=== PATIENT | male | born 1950 | race Caucasian/White ===

== ENCOUNTER 2019-06-02 13:30 | Outpatient (RCR) | payer MEDICARE, SELFPAY ==
--- NOTE | 2019-03-08 09:44 | PCCPR ---
James takes hydrocodone for chronic low back pain he takes twice per day.
[2019-03-08 10:07] VITALS: BP 148/84; PULSE 75; RESP 14; O2SAT 94
[2019-03-08 10:09] VITALS: PULSE 75
== END 2019-06-02 17:55 | disposition home or self-care (01) ==
LOC: ANHCPREHAB 13:30
PROVIDERS: PCP Internal Medicine; Visit Provider Nurse Practitioner Adult Health
DX: Z95.5 Presence of coronary angioplasty implant and graft (principal)
CPT/HCPCS: 93798

== ENCOUNTER → 2020-02-28 12:21 | Outpatient (CLI) | payer MEDICARE, SELFPAY ==
--- NOTE | ~2020-02-28 | XR_ITS ---
EXAMINATION: XR knee RT 2V DATE: 02/28/2020 12:48 INDICATION: Right knee pain. TECHNIQUE: 2 views of right knee were obtained. COMPARISON: Right knee radiographs 12/10/2017 FINDINGS: Bone alignment is normal. No fracture. There is mild osteoarthritis of medial and patellofe moral compartments characterized by marginal osteophytes. No knee joint effusion. IMPRESSION: 1. Mild right knee osteoarthritis. Reviewed, dictated and finalized at location A. TANK ERECTOR
== END ==
PROVIDERS: PCP Internal Medicine; Visit Provider Pain Medicine Interventional Pain Medicine
DX: M25.561 Pain in right knee (principal); M17.11 Unilateral primary osteoarthritis, right knee
CPT/HCPCS: 73560

== ENCOUNTER → 2020-06-11 11:57 | Outpatient (CLI) | payer MEDICARE, SELFPAY ==
--- NOTE | ~2020-06-11 | XR_ITS ---
EXAMINATION: XR elbow LT 2V DATE: 06/11/2020 12:44 INDICATION: Left elbow pain. TECHNIQUE: 2 views of left elbow were obtained. COMPARISON: Left elbow radiograph 11/06/2017 FINDINGS: Bone alignment is normal. No fracture. There is mild elbow joint osteoarthritis. There are enthesophytes at medial and lateral humeral epicondyles. No elbow joint effusion. IMPRESSION: 1. Mild elbow joint osteoarthritis. Reviewed, dictated and finalized at location A. K CLIPPER
--- NOTE | ~2020-06-11 | XR_ITS ---
EXAMINATION: XR wrist RT min 3V DATE: 06/11/2020 12:44 INDICATION: Right wrist pain TECHNIQUE: Posteroanterior, ulnar deviation, oblique, and lateral views of the right wrist were obtai niurka. COMPARISON: Right hand radiographs dated 12/10/2017 FINDINGS: Alignment is normal. No fracture. Polyarticular osteoarthritis, severe at the first carpal metacarpal joint, moderate at the second and third metacarpophalangeal joints and mild at the distal radioulnar , triscaphe, remaining metacarpophalangeal and first interphalangeal joints. Atherosclerotic calcific a cyst along the ulnar artery. IMPRESSION: 1. 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 Reviewed, dictated and finalized at location B. AL CLERK IMPRESSION: 1. 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
--- NOTE | ~2020-06-11 | XR_ITS ---
EXAMINATION: XR lumbar spine 2-3V EXAM DATE: 06/11/2020 12:44 INDICATION: Elbow pain, wrist pain, lumbar radiculopathy. TECHNIQUE: Lumber spine frontal, lateral, lateral L5-S1 projections for interpretation. Comparison is made to prior examination from 12/10/2017. FINDINGS: There is no scoliosis. There is 4 mm anterolisthesis L4 on L5 with mild loss of this disc height and at L5-S1. The vertebral body and disc heights are otherwise well maintained. There is mode rate to severe mid and lower lumbar facet arthropathy. No spondylolysis. Mild aortic arterial scleros is. Sacrum, sacroiliac joints, sacral arcuate lines are intact. Difficult to appreciate any significa nt interval change compared to prior study. IMPRESSION: 1. Advanced lower lumbar facet arthropathy. 2. L4-5 grade 1 anterolisthesis 3. Mild disc disease. Reviewed, dictated and finalized at location A. STMAS TREE FARMER
--- NOTE | ~2020-06-11 | XR_ITS ---
EXAMINATION: XR elbow RT 2V DATE: 06/11/2020 12:44 INDICATION: Right elbow pain. TECHNIQUE: 2 views of right elbow were obtained. COMPARISON: Right elbow radiographs 03/09/2018 FINDINGS: Bone alignment is normal. No fracture. There is moderate elbow joint osteoarthritis. There is an enthesophyte at lateral humeral condyle. No elbow joint effusion. IMPRESSION: 1. Moderate right elbow osteoarthritis. Reviewed, dictated and finalized at location A. DESK ASSISTANT
--- NOTE | ~2020-06-11 | XR_ITS ---
EXAMINATION: XR wrist LT min 3V DATE: 06/11/2020 12:44 INDICATION: Left wrist pain TECHNIQUE: Posteroanterior, ulnar deviation, oblique, and lateral views of the left wrist were obtain ed. COMPARISON: none FINDINGS: Alignment is normal. No fracture. Polyarticular osteoarthritis, moderate severity at the triscaphe, f irst carpometacarpal and second and fourth metacarpophalangeal joints and mild at the distal radiouln ar, the remaining metacarpophalangeal joints and the visualized interphalangeal joints. Atherosclerot ic calcifications along the ulnar artery. IMPRESSION: 1. Polyarticular osteoarthritis, mild at the left wrist and mild moderate at the visualized left hand . Reviewed, dictated and finalized at location B. P INSURANCE SPECIALIST IMPRESSION: 1. Polyarticular osteoarthritis, mild at the left wrist and mild moderate at th e visualized left hand.
== END ==
PROVIDERS: Visit Provider Family Medicine
DX: M19.021 Primary osteoarthritis, right elbow (principal); M19.022 Primary osteoarthritis, left elbow; M47.817 Spondylosis without myelopathy or radiculopathy, lumbosacral region; M19.032 Primary osteoarthritis, left wrist; M19.031 Primary osteoarthritis, right wrist
CPT/HCPCS: 72100; 73070; 73110

== ENCOUNTER → 2020-08-08 13:00 | Outpatient (CLI) | payer MEDICARE, SELFPAY ==
--- NOTE | ~2020-08-08 | XR_ITS ---
EXAMINATION: XR cervical spine 4-5V EXAM DATE: 08/08/2020 13:19 INDICATION: Cervical radiculopathy, chronic posterior neck and right arm radicular pain. TECHNIQUE: Cervical spine frontal, lateral, lateral swimmers, and open-mouth odontoid projections. C omparison is made to prior examination from 05/20/2018. FINDINGS: There is carotid calcification, arterial sclerotic disease, with unknown amount of additio nal atherosclerotic disease. Consider correlating with carotid ultrasound if not recently evaluated (last prior ultrasound at this institution was 2009). Moderate disc disease at C5-6, mild at the other cervical levels. 2 mm retrolisthesis C5 on C6. The v ertebral bodies are otherwise aligned. Prevertebral soft tissue and pre-dens space are within normal limits. The odontoid process is intact. The lateral masses of C1 line up with C2. Overall moderate c ervical arthropathy. Lung apices unremarkable. IMPRESSION: 1. Moderate cervical spondylosis. 2. Carotid calcification, consider ultrasound. Reviewed, dictated and finalized at location A.
== END ==
PROVIDERS: PCP Internal Medicine; Visit Provider Pain Medicine Interventional Pain Medicine
DX: M54.12 Radiculopathy, cervical region (principal); M47.812 Spondylosis without myelopathy or radiculopathy, cervical region; I65.29 Occlusion and stenosis of unspecified carotid artery
CPT/HCPCS: 72050

== ENCOUNTER → 2021-03-11 13:16 | Outpatient (CLI) | payer MEDICARE, SELFPAY ==
--- NOTE | ~2021-03-11 | XR_ITS ---
EXAMINATION: XR lumbar spine 2-3V DATE: 03/11/2021 14:18 INDICATION: Radiculopathy, lumbar region. TECHNIQUE: 3 views of lumbar spine were obtained. COMPARISON: Lumbar spine radiographs 06/11/2020 FINDINGS: There is 3 mm anterolisthesis of L4 on L5. Vertebral body heights are normal. There is mild ly decreased disc height at L4-L5 and L5-S1. There is multilevel facet joint osteoarthritis, severe b ilaterally from L2-L3 through L5-S1. IMPRESSION: 1. Mild lumbar spondylosis. Reviewed, dictated and finalized at location A. T ARMORED RECONNAISSANCE OFFICER IMPRESSION: 1. Mild lumbar spondylosis.
== END ==
PROVIDERS: PCP Internal Medicine
DX: M47.816 Spondylosis without myelopathy or radiculopathy, lumbar region (principal)
CPT/HCPCS: 72100

== ENCOUNTER → 2021-03-27 09:59 | Outpatient (CLI) | payer MEDICARE, SELFPAY ==
--- NOTE | ~2021-03-27 | CT_ITS ---
EXAMINATION: CT abdomen pelvis wo/w con DATE: 03/27/2021 10:46 INDICATION: Microscopic hematuria TECHNIQUE: Computed tomography (CT) of the abdomen and pelvis was performed without intravenous contr ast. CT of the abdomen and pelvis was then performed with a total of 130 mL Omnipaque 350 intravenous contrast using a double-bolus technique for simultaneous opacification of the renal parenchyma and r enal collecting system. The dose-length product (DLP) was 2263.74 mGy-cm. Automated exposure control and iterative reconstruction technique were employed. COMPARISON: 02/24/2018 FINDINGS: Minimal dependent atelectasis is present in the lung bases. The heart size is normal. Calci fied pulmonary nodules and calcified bilateral hilar and mediastinal lymph nodes are consistent with old granulomatous disease. Calcified coronary artery atherosclerosis is noted. The liver, spleen, jenkins creas, gallbladder, and adrenal glands are normal. No stones are identified in the kidneys, ureters, or bladder. There is no hydronephrosis or hydroureter. No suspicious renal or urothelial lesion is id entified. There is a stricture at the left ureteropelvic junction. There is calcified atherosclerosis of the aorta and many of the other arteries. No pathologically enlarged abdominal or pelvic lymph no santos are identified. The appendix is normal. There are bilateral inguinal hernias containing fat. Ther e is mild lumbar spondylosis. IMPRESSION: 1. Left ureteropelvic junction stricture. No CT correlate for the patient's symptoms. Reviewed, dictated and finalized at location A. BLADE ALIGNER IMPRESSION: 1. Left ureteropelvic junction stricture. No CT correlate for the patient's sym ptoms.
--- NOTE | ~2021-03-27 | XR_ITS ---
EXAMINATION: XR abdomen/kub 1V INDICATION: Microscopic hematuria TECHNIQUE: Supine views of the abdomen were obtained on 2 radiographs. COMPARISON: CT from today FINDINGS: No urolithiasis is identified. The bowel gas pattern is normal. There is moderate osteoarth ritis of the hips. IMPRESSION: 1. No radiographic correlate for the patient's symptoms. Reviewed, dictated and finalized at location A. DOCTOR
[2021-03-27 10:23] LABS: Estimated Glomerular Filt Rate > 60
== END ==
PROVIDERS: PCP Internal Medicine; Visit Provider Urology
DX: R31.29 Other microscopic hematuria (principal); N13.0 Hydronephrosis with ureteropelvic junction obstruction; M16.0 Bilateral primary osteoarthritis of hip; K40.90 Unilateral inguinal hernia, without obstruction or gangrene, not specified as recurrent; I70.0 Atherosclerosis of aorta; M47.816 Spondylosis without myelopathy or radiculopathy, lumbar region
CPT/HCPCS: 74018; 74178; Q9967

== ENCOUNTER 2021-04-08 11:39 | Emergency (ER) | payer MEDICARE, SELFPAY ==
--- NOTE | ~2021-04-08 | XR_ITS ---
EXAMINATION: XR chest 2V DATE: 04/08/2021 12:53 INDICATION: Cough. TECHNIQUE: Frontal and lateral views of the chest were obtained on 3 radiographs. COMPARISON: Chest 2 views 06/24/2007 FINDINGS: Calcified bilateral lung nodules and calcified hilar lymph nodes are consistent with old gr anulomatous disease. No pleural effusion or pneumothorax. The heart size is normal. IMPRESSION: 1. No acute cardiopulmonary disease. Reviewed, dictated and finalized at location A. SCRIPT APPLICATION DEVELOPER
[2021-04-08 12:14] VITALS: BP 157/70; PULSE 57; RESP 16; TEMP 36.4; O2SAT 98
--- NOTE | 2021-04-08 12:37 | ED.URI ---
HPI - URI/Sore Throat General Chief Complaint: Upper Respiratory Infection Stated Complaint: Cough,Congestion,Sore Throat,Sinus Time Seen by Provider: 04/08/21 12:37 Source: patient, RN notes reviewed and old records reviewed Mode of arrival: ambulatory Limitations: no limitations History of Present Illness HPI Narrative: 71-year-old male presents to the [facility] with cough, congestion, sore throat and sinus pain Patient reports a deep cough that started Thursday or along with chest congestion. Sore throat sinus drainage started a day ago. States is currently in the hospital with double pneumonia. Had a Covid test on Thursday which he reports was negative. Related Data Home Medications Medication Instructions Recorded Confirmed hydrocodone-acetaminophen 1 tablet PO BID PRN 03/08/19 01/03/21 nitroglycerin [Nitrostat] 0.4 mg SUBLINGUAL Q5-15M PRN 03/08/19 01/03/21 omega-3 fatty acids-fish oil 1,000 mg BYMOUTH DAILY 03/08/19 01/03/21 aspirin 81 mg tablet,delayed 81 mg PO DAILY 01/03/21 01/03/21 release Allergies Allergy/AdvReac Type Severity Reaction Status Date / Time No Known Allergies Allergy Verified 04/08/21 12:50 Review of Systems Review of Systems: All systems reviewed & are unremarkable except as noted in HPI and below Constitutional: Constitutional: Reports no additional constitutional complaints, Denies chills and Denies fever(s) Eyes: Eyes: Reports no additional eye complaints ENT: Reports system reviewed and no additional complaints, except as documented and Denies sore throat Cardiovascular: Cardiovascular: Reports no additional cardiovascular complaints, Denies chest pain, Denies rapid heart rate, Denies radiating jaw, neck or arm pain and Denies slow heart rate Respiratory: Respiratory: Reports as per HPI, Reports chest congestion, Reports cough, Denies dyspnea and Denies wheezing Gastrointestinal: Gastrointestinal: Reports no additional gastrointestinal complaints, Denies abdominal pain, Denies nausea and Denies vomiting Musculoskeletal: Musculoskeletal: Reports no additional musculoskeletal complaints Integumentary/Breasts: Skin/Breast: Reports system reviewed and no additional complaints, except as docu Neurologic: Reports system reviewed and no additional complaints, except as documented Psychiatric: Psychiatric: Reports no additional psychiatric complaints Allergic/Immunologic: Allergic/Immunologic: Reports no additional allergic/immunologic complaints PMFSH Past Medical History Medical History Chronic GERD DM w/o complication type II Essential (primary) hypertension Surgical History Surgical History H/O colonoscopy H/O heart artery stent H/O heart artery stent S/P cervical disc replacement Family History Family History Father Family history of heart disease in male family member before age 55 Acute myocardial infarction Mother No problems noted. Other Acute myocardial infarction Social History Social History Smoking status: Light tobacco smoker Tobacco type: cigarettes Second hand tobacco smoke exposure: Yes Alcohol intake: current Substance use: never Gender identity (if verbalized by the patient): Male Comments At the time of my signature, I reviewed and agree with the nursing past medical, surgical, social, and family history. There is no relevant family history pertinent to the patient complaint. Exam Const: General: healthy appearing, no acute distress and alert Nutritional Appearance: well nourished Orientation/consciousness: patient oriented x3 Limitations: no limitations HENMT: Head: normal to inspection Ears: external ears normal, TM's normal bilaterally and EAC's normal Eyes: Conjunctivae: conjunctivae normal Pupils: Equal, round
[2021-04-08 13:03] LABS: Glucose Point of Care 129 mg/dl (65-105)
== END 2021-04-08 13:15 | disposition home or self-care (01) ==
PROVIDERS: Emergency Provider Nurse Practitioner; PCP Internal Medicine
DX: J40 Bronchitis, not specified as acute or chronic (principal); F17.210 Nicotine dependence, cigarettes, uncomplicated; K21.9 Gastro-esophageal reflux disease without esophagitis; E11.9 Type 2 diabetes mellitus without complications; I10 Essential (primary) hypertension; Z95.5 Presence of coronary angioplasty implant and graft
CPT/HCPCS: 71046; 82948; 87804; 99213; G0463

== ENCOUNTER → 2021-05-09 15:52 | Outpatient (CLI) | payer MEDICARE, SELFPAY ==
--- NOTE | ~2021-05-09 | XR_ITS ---
EXAMINATION: XR knee LT min 4V DATE: 05/09/2021 16:27 INDICATION: Left knee pain. TECHNIQUE: 4 views of left knee including standing views were obtained. COMPARISON: None. FINDINGS: Bone alignment is normal. No fracture. There is mild tricompartmental osteoarthritis charac terized by marginal osteophytes. No joint space narrowing. No knee joint effusion. IMPRESSION: 1. Mild left knee osteoarthritis. Reviewed, dictated and finalized at location A. TRONIC ASSEMBLER
--- NOTE | ~2021-05-09 | XR_ITS ---
XR knee RT min 4V 05/09/2021 16:27 Indication: Right knee pain Procedure: 4 views right knee Comparison: 02/28/2020 Findings: There is mild tricompartment osteoarthritis of the right knee. No fracture, subluxation or dislocation. No significant joint effusion. There is extensive vascular calcification. No foreign bod ies. Impression: 1: Mild tricompartment osteoarthritis of the right knee. Reviewed, dictated and finalized at location B. CAL PRACTICE MANAGER Impression: 1: Mild tricompartment osteoarthritis of the right knee.
== END ==
PROVIDERS: Visit Provider Family Medicine
DX: M25.561 Pain in right knee (principal); M25.562 Pain in left knee; M17.0 Bilateral primary osteoarthritis of knee
CPT/HCPCS: 73564

== ENCOUNTER 2021-06-17 13:04 | Outpatient (CLI) | payer MEDICARE, SELFPAY ==
--- NOTE | ~2021-06-17 | NM_ITS ---
EXAMINATION: HEATHER hernandez renal scan DATE: 06/17/2021 14:53 INDICATION: Ureteropelvic junction obstruction. TECHNIQUE: 8.0 mCi Tc-99m MAG3 was administered IV. 40 mg furosemide was administered IV immediately afterward. The patient was scanned in the supine position. A posterior abdominal radionuclide angiog hunter was obtained. A subsequent time course of static images of the kidneys, ureters, and bladder was obtained. COMPARISON: CT abdomen and pelvis 03/27/2021 FINDINGS: The posterior abdominal radionuclide angiogram and sequential static images show normal siz e, position, and morphology of the kidneys. Peak renal parenchymal uptake was 2 min in right kidney a nd 2 min in left kidney (normal peak 3-5 minutes). The relative early renal uptake was 52% on the ri ght and 47% on the left (<40% is abnormal). No abnormalities of the ureters or bladder are seen. T1/2 for clearance of activity from the right kidney and proximal collecting system was 10 minutes. T1/2 for clearance of activity from the left kidney and proximal collecting system was 10 minutes. IMPRESSION: 1. Symmetric kidney function. 2. No delay in contrast clearance from either kidney to suggest fixed obstruction. Reviewed, dictated and finalized at location A. MBLYMAN OR WOMAN IMPRESSION: 1. Symmetric kidney function. 2. No delay in contrast clearance from either kidney to suggest fixed obstruct ion.
== END 2021-06-17 13:05 | disposition home or self-care (01) ==
PROVIDERS: Visit Provider Urology
DX: N13.5 Crossing vessel and stricture of ureter without hydronephrosis (principal)
CPT/HCPCS: 78708; A9562; J1940

== ENCOUNTER → 2021-06-19 14:06 | Outpatient (CLI) | payer MEDICARE, SELFPAY ==
--- NOTE | ~2021-06-19 | XR_ITS ---
EXAMINATION:XR_CERV2-3V_CR DATE: 06/19/2021 14:39 INDICATION: Cervical radiculopathy TECHNIQUE: AP, lateral, and odontoid views of the cervical spine are provided. COMPARISON: 08/08/2020 FINDINGS: There are 2 mm of stable retrolisthesis of C5 on C6. There is unchanged moderate loss of in tervertebral disc space height at C5-6. The odontoid is intact. No fracture is identified. The verteb ral body heights are normal. Small degenerative osteophytes project from the anterior endplates of mu ltiple vertebral bodies. There is moderate multilevel facet and uncovertebral joint osteoarthritis. IMPRESSION: 1. Moderate cervical spondylosis without acute findings or significant interval change. Reviewed, dictated and finalized at location B. KFAST BAR ATTENDANT
== END ==
PROVIDERS: PCP Pain Medicine Interventional Pain Medicine
DX: M54.12 Radiculopathy, cervical region (principal); M43.02 Spondylolysis, cervical region
CPT/HCPCS: 72040

== ENCOUNTER → 2021-10-18 14:31 | Outpatient (CLI) | payer MEDICARE, SELFPAY ==
--- NOTE | ~2021-10-18 | XR_ITS ---
XR knee LT 2V 10/18/2021 14:43 Indication: Left knee pain Procedure: 2 views left knee Comparison: No prior studies for comparison. Findings: There is anatomic alignment. No fracture, subluxation or dislocation. There is mild patello femoral compartment osteoarthritis. There are vascular calcifications. No significant joint effusion. Impression: 1: Mild patellofemoral compartment osteoarthritis. Reviewed, dictated and finalized at location A. Impression: 1: Mild patellofemoral compartment osteoarthritis.
--- NOTE | ~2021-10-18 | XR_ITS ---
XR knee RT 2V DATE: 10/18/2021 14:43 INDICATION: Right knee pain TECHNIQUE: AP and lateral views COMPARISON: 04/19/2021 right knee FINDINGS: No fracture or dislocation or joint effusion. No periosteal reaction or bone destruction. N o radiopaque intra-articular loose body or chondrocalcinosis. Medial lateral compartment joint spaces appear well preserved. Mild osteoarthritis at the patellofemoral compartment. Femoral, popliteal and trifurcation artery calcifications. IMPRESSION: Mild patellofemoral osteoarthritis Reviewed, dictated and finalized at location A.
== END ==
PROVIDERS: PCP Internal Medicine; Visit Provider Pain Medicine Interventional Pain Medicine
DX: M25.569 Pain in unspecified knee (principal); M17.0 Bilateral primary osteoarthritis of knee
CPT/HCPCS: 73560

== ENCOUNTER → 2022-03-19 14:15 | Outpatient (CLI) | payer MEDICARE, SELFPAY ==
--- NOTE | ~2022-03-19 | XR_ITS ---
XR hip BI wo pelvis DATE: 03/19/2022 14:45 INDICATION: Posterior left hip pain for 4 weeks. No injury. TECHNIQUE: AP and lateral views of each hip COMPARISON: None FINDINGS: Normal alignment at the pubic symphysis and sacral iliac joints. No fracture or dislocation , avascular necrosis or bone destruction of either hip is detected. Hip joint spaces are symmetric an d relatively well preserved. IMPRESSION: No significant abnormality Reviewed, dictated and finalized at location B. STRIPPER IMPRESSION: No significant abnormality
== END ==
PROVIDERS: Visit Provider Pain Medicine Interventional Pain Medicine
DX: M47.817 Spondylosis without myelopathy or radiculopathy, lumbosacral region (principal); M25.552 Pain in left hip
CPT/HCPCS: 73502; 73521

== ENCOUNTER → 2022-05-27 14:54 | Outpatient (CLI) | payer MEDICARE, SELFPAY ==
--- NOTE | ~2022-05-27 | XR_ITS ---
EXAM: XR_CERV2-3V_CR DATE: 05/27/2022 15:23 HISTORY: Radiculopathy, cervical region . COMPARISON: 06/19/2021. FINDINGS: Craniocervical association and atlantoaxial joint are aligned. No prevertebral soft tissue swelling. Vertebral bodies are aligned. Stable minimal retrolisthesis at C5-6. Multilevel disc space narrowing and marginal osteophytosis. Multilevel facet sclerosis and uncovertebral joint hypertrophy . Bilateral carotid bifurcation atherosclerotic calcifications. IMPRESSION: Multilevel degenerative disc disease and facet arthropathy. Reviewed, dictated and finalized at location K. RPROOFER HELPER
--- NOTE | ~2022-05-27 | XR_ITS ---
EXAM: XR lumbar spine 2-3V DATE: 05/27/2022 15:23 HISTORY: Radiculopathy, lumbosacral region . COMPARISON: 03/11/2021. FINDINGS: 5 nonrib-bearing lumbar-type vertebral bodies. Pedicles intact. 4 mm anterolisthesis at L4 -5, increased since the prior study. Vertebral body heights preserved. Multilevel disc space narrowin g and marginal osteophytosis, moderate at L4-5 and L5-S1. Severe facet hypertrophy and sclerosis. No fracture or dislocation. Aortic calcification without evident aneurysm IMPRESSION: Grade 1 anterolisthesis at L4-5. Multilevel degenerative disc disease. Multilevel severe facet arthropathy. Reviewed, dictated and finalized at location K. OLOGIC TECHNOLOGY TEACHER IMPRESSION: Grade 1 anterolisthesis at L4-5. Multilevel degenerative disc disea se. Multilevel severe facet arthropathy.
== END ==
PROVIDERS: PCP Internal Medicine; Visit Provider Pain Medicine Interventional Pain Medicine
DX: M54.17 Radiculopathy, lumbosacral region (principal); M54.12 Radiculopathy, cervical region; G89.4 Chronic pain syndrome; M50.30 Other cervical disc degeneration, unspecified cervical region; M51.36 Other intervertebral disc degeneration, lumbar region
CPT/HCPCS: 72040; 72100

== ENCOUNTER 2023-07-14 13:16 | Outpatient (CLI) | payer MEDICARE, SELFPAY ==
--- NOTE | ~2023-07-14 | XR_ITS ---
XR lumbar spine 2-3V DATE: 07/14/2023 13:41 INDICATION: Back pain TECHNIQUE: AP, lateral, coned lateral lumbosacral views COMPARISON: May 27, 2021 lumbar spine radiographic examination is not available from the PACS sy stem at this time FINDINGS: Osteopenia. There is a grade 1 anterolisthesis at L4-5. Prominent degenerative change is suggested at the apophyseal joints at the mid and lower lumbar and l umbosacral area. There is mild to moderate loss of interspace height at L4-5 and L5-S1. There is mild degenerative spu rring at L3-4, L4-5 and L5-S1. No fracture or bone destruction is evident. The included lower thoracic and lumbar pedicles are intac t. The sacroiliac joints are intact. IMPRESSION: Moderate degenerative disease at L4-5 and L5-S1, mild degenerative disc disease at L2-3 a nd L3-4 Grade 1 anterolisthesis at L4-5 due to degenerative change at the apophyseal joints Osteopenia Reviewed, dictated and finalized at location B. IMPRESSION: Moderate degenerative disease at L4-5 and L5-S1, mild degenerative disc disease at L2-3 and L3-4 Grade 1 anterolisthesis at L4-5 due to degenerative change at the apophyseal jacqueline ints Osteopenia
--- NOTE | ~2023-07-14 | XR_ITS ---
XR cervical spine 4-5V DATE: 07/14/2023 13:41 INDICATION: Neck pain TECHNIQUE: AP, open-mouth, lateral, swimmer views COMPARISON: May 27, 2022 cervical spine examination is not available from PACS at this time FINDINGS: C1 and C2 are normally aligned and the odontoid process is intact. No fracture or dislocati on or locked facet or prevertebral soft tissue swelling. Moderately severe degenerative disc disease and mild retrolisthesis at C5-6. The remaining cervical i nterspaces are relatively well preserved. There is minimal anterolisthesis at C6-7. Degenerative changes apophyseal joints. Bilateral uncovertebral joint spurring is noted particularly at C5-6 bilaterally. IMPRESSION: Moderate cervical spondylosis Reviewed, dictated and finalized at location B.
== END 2023-07-14 13:17 ==
LOC: MICIMG 13:20
PROVIDERS: PCP Pain Medicine Interventional Pain Medicine; Visit Provider Pain Medicine Interventional Pain Medicine
DX: M51.36 Other intervertebral disc degeneration, lumbar region (principal); M51.37 Other intervertebral disc degeneration, lumbosacral region; M43.16 Spondylolisthesis, lumbar region; M85.89 Other specified disorders of bone density and structure, multiple sites
CPT/HCPCS: 72050; 72100

== ENCOUNTER 2023-09-21 09:49 | Outpatient (CLI) | payer MEDICARE, SELFPAY ==
--- NOTE | ~2023-09-21 | XR_ITS ---
XR wrist RT min 3V Ordering provider: Alissa Saleh MD History: . NUMBNESS, PAIN, TINGLING X 1.5 MONTHS NKI NO SURG . Comparison: June 11, 2020 FINDINGS: BONES: No acute fracture or dislocation. JOINT SPACES: Osteoarthritic changes of the first carpometacarpal joint. SOFT TISSUES: Vascular calcifications. IMPRESSION: No acute osseous abnormality right wrist.. Reviewed, dictated and finalized at location A.
== END 2023-09-21 09:50 | disposition home or self-care (01) ==
PROVIDERS: PCP Nurse Practitioner Family; Visit Provider Plastic Surgery
DX: G56.20 Lesion of ulnar nerve, unspecified upper limb (principal)
CPT/HCPCS: 73110

== ENCOUNTER 2023-10-14 09:43 | Outpatient (CLI) | payer MEDICARE, SELFPAY ==
--- NOTE | 2023-10-14 11:30 | NEURO_ITS ---
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 # Mild right sensory Carpal Tunnel Syndrome. # Bilateral severe ulnar neuropathy, right more than left, across the elbows. # Abnormal needle/EMG exam. Nerve Conduction Studies Anti Sensory Summary Table Stim Site NR Peak (ms) P-T Amp (?V) Site1 Site2 Delta-P (ms) Dist (cm) Chuck (m/s) Left Median Anti Sensory (2-3nd Digit) Wrist 3.5 39.1 Wrist 2-3nd Digit 3.5 14.0 40 Wrist 3.7 30.0 Wrist 2-3nd Digit 3.5 14.0 40 Right Median Anti Sensory (2-3nd Digit) Wrist 4.1 14.5 Wrist 2-3nd Digit 4.1 14.0 34 Wrist 4.2 6.4 Wrist 2-3nd Digit 4.1 14.0 34 Left Radial Anti Sensory (Base 1st Digit) Wrist 1.9 29.4 Wrist Base 1st Digit 1.9 0.0 Right Radial Anti Sensory (Base 1st Digit) Wrist 2.8 15.5 Wrist Base 1st Digit 2.8 0.0 Left Ulnar Anti Sensory (5th Digit) Wrist 2.9 29.1 Wrist 5th Digit 2.9 14.0 48 Right Ulnar Anti Sensory (5th Digit) Wrist 3.3 14.7 Wrist 5th Digit 3.3 14.0 42 Motor Summary Table Stim Site NR Onset (ms) O-P Amp (mV) Site1 Site2 Delta-0 (ms) Dist (cm) Chuck (m/s) Left Median Motor (Abd Poll Brev) Wrist 3.2 5.9 Elbow Wrist 5.7 29.0 51 Elbow 8.9 4.0 Right Median Motor (Abd Poll Brev) Wrist 3.7 5.0 Elbow Wrist 5.9 32.0 54 Elbow 9.6 3.9 Left Ulnar Motor (Abd Dig Minimi) Wrist 2.8 2.6 A Elbow Wrist 9.5 32.0 34 A Elbow 12.3 1.1 B Elbow Wrist 4.5 24.0 53 B Elbow 7.3 1.7 Right Ulnar Motor (Abd Dig Minimi) Wrist 2.5 3.6 A Elbow Wrist 17.1 32.0 19 A Elbow 19.6 0.9 B Elbow Wrist 4.3 20.0 47 B Elbow 6.8 3.2 F Wave Studies NR F-Lat (ms) L-R F-Lat (ms) Left Median (Mrkrs) (Abd Poll Brev) 29.38 0.02 Right Median (Mrkrs) (Abd Poll Brev) 29.36 0.02 Left Ulnar (Mrkrs) (Abd Dig Min) 28.27 0.48 Right Ulnar (Mrkrs) (Abd Dig Min) 28.74 0.48 EMG Side Muscle Nerve Root Ins Act Fibs Amp Dur Recrt Comment Right Ext Indicis Radial (Post Int) C7-8 Nml Nml Nml Nml Nml Left Ext Indicis Radial (Post Int) C7-8 Nml Nml Nml Nml Nml Left Ext Digitorum Radial (Post Int) C7-8 Nml Nml Nml Nml Nml Right PronatorTeres Median C6-7 Nml Nml Nml Nml Nml Right Ext Digitorum Radial (Post Int) C7-8 Nml Nml Nml Nml Nml Right Abd Poll Brev Median C8-T1 Nml Nml Nml Nml Nml Right BrachioRad Radial C5-6 Nml Nml Nml Nml Nml Left BrachioRad Radial C5-6 Nml Nml Nml Nml Nml Left PronatorTeres Median C6-7 Nml Nml Nml Nml Nml Left Abd Poll Brev Median C8-T1 Nml Nml Nml Nml Nml Right 1stDorInt Ulnar C8-T1 Nml 3+ Nml >12ms +4 Left 1stDorInt Ulnar C8-T1 Nml 3+ Nml >12ms +4 Right ABD Dig Min Ulnar C8-T1 Nml 3+ Nml >12ms +4 Left ABD Dig Min Ulnar C8-T1 Nml 3+ Nml >12ms +4 MTDD
== END 2023-10-14 09:44 | disposition home or self-care (01) ==
PROVIDERS: PCP Nurse Practitioner Family; Visit Provider Plastic Surgery
DX: G56.20 Lesion of ulnar nerve, unspecified upper limb (principal); G56.01 Carpal tunnel syndrome, right upper limb; G56.23 Lesion of ulnar nerve, bilateral upper limbs; R94.131 Abnormal electromyogram [EMG]
CPT/HCPCS: 95886; 95911

== ENCOUNTER 2023-12-02 13:40 | Outpatient (CLI) | payer MEDICARE, SELFPAY ==
--- NOTE | ~2023-12-02 | XR_ITS ---
EXAMINATION: XR thoracic spine 3V DATE: 12/02/2023 13:56 INDICATION: Radiculopathy, thoracic region. Upper back pain. TECHNIQUE: 3 views of thoracic spine including standing views were obtained. COMPARISON: None. FINDINGS: There is 9 degrees levocurvature of upper thoracic spine. Vertebral body heights are normal . There is mildly decreased disc at multiple levels throughout the spine. There are endplate osteophy edith at most levels. IMPRESSION: 1. Mild thoracic spondylosis. Reviewed, dictated and finalized at location A.
== END 2023-12-02 13:41 ==
PROVIDERS: PCP Pain Medicine Interventional Pain Medicine; Visit Provider Pain Medicine Interventional Pain Medicine
DX: M54.14 Radiculopathy, thoracic region (principal); M43.04 Spondylolysis, thoracic region
CPT/HCPCS: 72072

== ENCOUNTER 2023-12-23 01:43 | Day surgery (SDC) | payer MEDICARE, SELFPAY ==
[2023-12-17 14:14] VITALS: BMI 29.5
--- NOTE | 2023-12-17 14:40 | PC.NURSE ---
Addendum entered by Sherry Funk RN 12/18/23 11:58: Pt aware no more than 20 oz of liquids until 414. Original Note: Report to the Outpatient Waiting Room, entrance under the [facility] located off [facility], at time _10:15AM__ on date _12/23/23_. Planned Procedure Time: ____12:15PM____.? Time changes happen often and if your time is changed the preop area will call you the afternoon before. - You and your visitor will be asked to self-screen and do not enter if you have any COVID symptoms. Please call surgeon if you need to reschedule. - A mask is optional within the hospital at this time. Patients may have clear liquids (water, carbonated beverages, clear teas, apple juice) until 3 hours prior to surgery with a maximum of 20 ounces. - No food from midnight until time of surgery and no smoking. Take only the following medications with a SIP of water on the morning of surgery: METOPROLOL. MAY TAKE HYDROCODONE AND LORAZEPAM NEEDED. DO NOT STOP ANY OF YOUR OTHER PRESCRIPTION MEDICATIONS PRIOR TO SURGERY EXCEPT THE FOLLOWING Medications to discontinue per physician HOLD PLAVIX & ASPIRIN PER DR DICKEY- PATIENT CALLING OFFICE NOW. HOLD ALL VITAMINS/SUPPLEMENTS 3 DAYS PRE-OP PER ANESTHESIA- LAST DOSE 12/19/23. Please no make-up, nail korean, hairspray, perfume, deodorant, or body powder the day of surgery.? No jewelry (including any body piercings) or valuables the day of surgery, leave them at home.? Please take a shower or bath the night before, or the morning of, surgery with an antibacterial soap.? Wear comfortable, loose fitting clothing.? Children are encouraged to wear pajamas. - Jewelry must be removed prior to entering the operating room.? Rings and piercings that are not removed may be cut off. - The hospital will not accept responsibility for valuables.? - Please leave all valuables, including medications, at home the day of surgery. If you are going home after surgery, a licensed dump truck driver off highway must drive you home.? - NO public transportation without another adult if you receive anesthesia. - We recommend that an adult stay with you for 24 hours following discharge. - We also recommend that you do not drive, make important decision, drink alcoholic beverages, or take any drugs that were not prescribed by your health care provider for at least 24 hours after your discharge time. For Pediatric surgeries, we recommend two adults accompany the child home. Follow any additional instructions given to you from your surgeon. Telephone instructions given to PATIENT and asked if any additional questions and then verbalized understanding. Patient advised to call surgeon office or pre surgery nurse liaison [phone] if any additional questions.
--- NOTE | 2023-12-23 07:16 | P.OP_ITS ---
Procedure Note - Detailed Date of Procedure 12/23/23 Pre-op Diagnosis right carpal and recurrent cubital tunnel syndrome Post-op Diagnosis Same Procedure Performed right ectr and revisiion right CuTR Surgeon Alissa Saleh MD Dental Front Office Assistant Ed Agudelo PA-C Anesthesia MAC Description of Procedure INFORMED CONSENT: The patient was seen and examined and marked in the pre-op area.? The patient signed the consent form. PROCEDURE IN DETAIL:The patient taken back to OR on the stretcher in supine position. Time out performed with anesthesia, surgeon and staff agreeing on patient's name site and surgery to be performed SCDs were placed on the lower extremities and inflated. A tourniquet was placed on {right} upper extremity and antibiotics given IV After anesthesia administered sedation I injected {10}cc 1%lido with epi and 0.5% marcaine plain at the operative sites The?{right upper extremity}?was prepped and draped in sterile fashion the??{right upper extremity} was? exsanguinated with Esmarch bandage and tourniquet inflated to 250mmHg I made a transverse incision in the {right} volar distal wrist crease through skin and dermis with 15 blade scalpel.? Littler scissors spread down to antebrachial fascia. A small incision was made in antebrachial fascia allowing access to Carpal tunnel. I proceeded with sequential dilation staying in line with the ring finger and hugging the hook of the hamate.? I then used the synovial elevator to free any adhesions from the underside of the transverse carpal ligament. Next I was able to insert the Microaire endoscopic carpal tunnel device with direct visualization of the transverse fibers on the monitor and proceeded with complete segmental retrograde release of the ligament in its entirety.? I irrigated with normal saline and closed with 4-0 monocryl for dermis and subcuticular closure. I next proceeded with making a longitudinal incision between two heads for flexor carpi ulnaris at end of {right} cubital tunnel with 15 blade scalpel utilizing patient's previous healed incision.? Littler scissors were used to spread down to FCU fascia.? An incision was made in FCU fascia and ulnar nerve identified exiting cubital tunnel.? I proceeded with complete retrograde release of the cubital tunnel including 7cm proximal for the intermuscular septum.?It should be noted that this was a revision case and the anatomy was notably distorted rom scar tissue and previous surgery adding to difficulty of identification and nerve dissection. Significant epineurolysis of scar was performed until I was able to begin visualzing vaso nervorum and ensuring the nerve was free of compression. There was no subluxation on full elbow range of motion. ? I irrigated with normal saline and closure with 4-0 monocryl for dermis and subcuticular. The incision was covered with Dermabond then 4x4s, jh, and a posterior elbow splint for patient safety, security and comfort and secured with taty bandages after the tourniquet was let down noting the hand was warm and well perfused.? Patient awaken from anesthesia and transferred to recovery in stable condition Complications - none EBL- 1cc Disposition - home in stable conditions Ed Agudelo PA-C was essential for positioning, retraction, closure and dressing placement [facility] Billing Surgery - Charge Forward: Surgery Billing ([id number] same for ed adding modifier )
--- NOTE | 2023-12-23 07:16 | PM.HPGS ---
History of Present Illness History of Present Illness Chief complaint: right carpal and cubital tunnel syndrome Narrative: Patient seen and examined in pre-operative holding area. No interval change in medical history or symptoms. Patient recalls previous discussion of benefits and alternatives to procedure. Continues to desire to proceed with right endoscopic possible open carpal tunnel release and revision right cubital tunnel release. Reviewed procedure, post-op expectations and risks including but not limited to bleeding, infection, injury to tendon/nerve/vessel, decreased hand function, stiffness, RSD, no change or worsening of symptoms. I discussed the possible use of assistants and their participation in the case. Patient stated understanding and signed the consent form wishing to proceed. Review of Systems Review of Systems: All systems reviewed & are unremarkable except as noted in HPI and below PMFSH Past Medical History Medical History Anxiety and depression ASHD (arteriosclerotic heart disease) Benign prostatic hyperplasia Chronic GERD DM w/o complication type II Essential (primary) hypertension Fatty liver Inflammatory polyps of colon with unspecified complications Other and unspecified hyperlipidemia Primary osteoarthritis involving multiple joints Unspecified hemorrhoids Surgical History Surgical History H/O colonoscopy H/O heart artery stent H/O heart artery stent S/P cervical disc replacement Family History Family History Father Family history of heart disease in male family member before age 55 Acute myocardial infarction Mother No problems noted. Other Acute myocardial infarction Social History Social History Smoking status: Never smoker Tobacco type: cigarettes Second hand tobacco smoke exposure: Yes Alcohol intake: current Drinks per week: 14 Alcohol use details: beer Substance use: current Substance use type: marijuana Other substance usage details: SMOKES MARIJUANA AT INTERVALS Do You Feel Safe in your Home?: Yes Lack of Transportation: No Lack of Food: Never True Current Housing: I Have Housing Concerned About Future Housing: No Difficulty Paying Gas/Electric Bills: No Difficulty Paying for Meds: No Currently Unemployed: No Education: Associate Degree Difficulty w/ Childcare or Family Care: No Living arrangements: with family Additional living arrangements comments: Occupation/Education: retired Gender identity (if verbalized by the patient): Male Sexual Orientation (if Verbalized by the Patient): Straight or Heterosexual Spiritual care concerns: No Agree to blood products: Yes Meds Home Medications and Allergies Home Medications Medication Instructions Recorded Confirmed Type hydrocodone 5 mg-acetaminophen 325 1 tablet PO BID PRN Back Pain 03/08/19 12/23/23 History mg tablet nitroglycerin 0.4 mg sublingual 0.4 mg sublingual Q5-15M PRN Chest 03/08/19 12/17/23 History tablet (Nitrostat) Pain aspirin 81 mg tablet,delayed 81 mg PO DAILY 01/03/21 12/17/23 History release (Adult Low Dose Aspirin) pantoprazole 40 mg tablet,delayed See Rx Instructions .Route 06/23/23 12/17/23 Rx release .COMPLEX #90 tabs lancets 33 gauge (Micro Thin See Rx Instructions .Route 07/29/23 12/17/23 Rx Lancets) .COMPLEX #200 ea glipizide 5 mg tablet See Rx Instructions .Route 08/10/23 12/17/23 Rx .COMPLEX #135 tabs blood sugar diagnostic (True See Rx Instructions .Route 08/13/23 12/17/23 Rx Metrix Glucose Test Strip) .COMPLEX Diabetes #200 strips valsartan 320 See Rx Instructions .Route 10/05/23 12/17/23 Rx mg-hydrochlorothiazide 12.5 mg .COMPLEX #90 tabs tablet rosuvastatin 40 mg tablet (Cresto
[2023-12-23 10:49] LABS: Glucose Point of Care 161 mg/dl (65-105)
[2023-12-23 10:51] LABS: Sodium 134 mmol/L (137-145)
[2023-12-23 11:00] VITALS: BP 160/70; PULSE 57; RESP 14; TEMP 36.4; O2SAT 99
[2023-12-23] MEDS: LACTATED RINGERS 1,000 ML 30 ML IV CONT (11:00)
--- NOTE | 2023-12-23 11:58 | WPDANESEPPF ---
Anes - Initial Pre Proc Eval Procedure: Operation Date: 12/23/23 12:15 Proposed Procedures p Right Cubital Tunnel Revision, Right Endoscopic Carpal Tunnel Release, Possible Open - Alissa Saleh MD Date/Time: 12/23/23 11:58 Surgeon: Alissa Saleh MD Pre Op Diagnosis: right carpal and cubital tunnel syndrome Patient Data Age: 73 Gender: M Height: 1.71 m Weight: 85 kg Last Vital Signs Temp 36.4 C L 12/23/23 11:00 Pulse 57 L 12/23/23 11:00 Resp 14 12/23/23 11:00 BP 160/70 H 12/23/23 11:00 Pulse Ox 99 12/23/23 11:00 O2 Del Method Room Air 12/23/23 11:00 Allergies Allergy/AdvReac Type Severity Reaction Status Date / Time No Known Allergies Allergy Verified 12/23/23 11:18 Home Medications Medication Instructions Recorded Confirmed Type hydrocodone 5 mg-acetaminophen 325 1 tablet PO BID PRN Back Pain 03/08/19 12/23/23 History mg tablet nitroglycerin 0.4 mg sublingual 0.4 mg sublingual Q5-15M PRN Chest 03/08/19 12/17/23 History tablet (Nitrostat) Pain aspirin 81 mg tablet,delayed 81 mg PO DAILY 01/03/21 12/17/23 History release (Adult Low Dose Aspirin) pantoprazole 40 mg tablet,delayed See Rx Instructions .Route 06/23/23 12/17/23 Rx release .COMPLEX #90 tabs lancets 33 gauge (Micro Thin See Rx Instructions .Route 07/29/23 12/17/23 Rx Lancets) .COMPLEX #200 ea glipizide 5 mg tablet See Rx Instructions .Route 08/10/23 12/17/23 Rx .COMPLEX #135 tabs blood sugar diagnostic (True See Rx Instructions .Route 08/13/23 12/17/23 Rx Metrix Glucose Test Strip) .COMPLEX Diabetes #200 strips valsartan 320 See Rx Instructions .Route 10/05/23 12/17/23 Rx mg-hydrochlorothiazide 12.5 mg .COMPLEX #90 tabs tablet rosuvastatin 40 mg tablet (Crestor) 40 mg PO DAILY #90 tabs 10/08/23 12/17/23 Rx metoprolol succinate 50 mg See Rx Instructions .Route 10/26/23 12/17/23 Rx tablet,extended release 24 hr .COMPLEX #90 tabs clopidogrel 75 mg tablet See Rx Instructions .Route 11/03/23 12/17/23 Rx .COMPLEX #90 tabs potassium chloride 10 mEq See Rx Instructions PO DAILY #90 11/10/23 12/17/23 Rx capsule,extended release caps metformin 1,000 mg tablet See Rx Instructions .Route 12/02/23 12/17/23 Rx .COMPLEX #180 tabs ferrous sulfate 325 mg (65 mg 325 mg PO DAILY 12/07/23 12/17/23 History iron) tablet folic acid 1 mg tablet 1 mg PO DAILY 12/07/23 12/17/23 History gabapentin 100 mg capsule 100 mg PO QHS #30 caps 12/15/23 12/17/23 Rx lorazepam 0.5 mg tablet 0.5 mg PO BID PRN Anxiety #60 tabs 12/15/23 12/17/23 Rx methocarbamol 750 mg tablet See Rx Instructions .Route 12/17/23 12/23/23 History .COMPLEX PRN MUSC SPASMS omega-3 fatty acids 1,000 mg 4,000 mg PO DAILY 12/17/23 12/17/23 History capsule sildenafil 100 mg tablet See Rx Instructions .Route 12/17/23 12/17/23 History .COMPLEX PRN Sexual Activity Laboratory Tests 12/23/23 12/23/23 10:41 10:45 Sodium 134 L mmol/L (137-145) POC Capillary Glucose 161 H mg/dl (65-105) Patient hx anesthesia problems: none Family hx anesthesia problems: none Results Review: All pre-operative results and documents have been reviewed as part of the pre-operative evaluation. REPLACED BY [facility] Past Medical History Medical History Anxiety and depression ASHD (arteriosclerotic heart disease) Benign prostatic hyperplasia Chronic GERD DM w/o complication type II Essential (primary) hypertension Fatty liver Inflammatory polyps of colon with unspecified complications Other and unspecified hyperlipidemia Primary osteoarthritis involving multiple joints Unspecified hemorrhoids Surgical History Surgical History H/O colonoscopy H/O heart artery stent H/O heart artery stent S/P cervical disc replacement Family History Family History Fathe
[2023-12-23] MEDS: ceFAZolin 2 GM/D5W 50 ML 2 GM/50 ML BAG IVPB (13:17)
[2023-12-23] MEDS: LIDO 1%/EPINEPHRINE 1:100,000 20 ML VIAL 10 ML INFILTRATE (13:27)
[2023-12-23 13:56] VITALS: BP 110/59; PULSE 64; RESP 14; O2SAT 98
[2023-12-23 14:04] LABS: Glucose Point of Care 150 mg/dl (65-105)
[2023-12-23 14:25] VITALS: BP 108/58; PULSE 60; RESP 14; O2SAT 97
== END 2023-12-23 14:43 | disposition home or self-care (01) ==
PROVIDERS: Anesthesiology; PCP Nurse Practitioner Family; Visit Provider Plastic Surgery
PROC: 01N54ZZ Release Median Nerve, Percutaneous Endoscopic Approach (ICD-10-PCS; CPT 29848; principal; 2023-12-23 12:15)
DX: G56.01 Carpal tunnel syndrome, right upper limb (principal); G56.21 Lesion of ulnar nerve, right upper limb; I25.10 Atherosclerotic heart disease of native coronary artery without angina pectoris; E11.9 Type 2 diabetes mellitus without complications; I10 Essential (primary) hypertension; K76.0 Fatty (change of) liver, not elsewhere classified; K21.9 Gastro-esophageal reflux disease without esophagitis; F41.8 Other specified anxiety disorders; E78.49 Other hyperlipidemia; M15.9 Polyosteoarthritis, unspecified; N40.0 Benign prostatic hyperplasia without lower urinary tract symptoms; Z95.5 Presence of coronary angioplasty implant and graft; F12.90 Cannabis use, unspecified, uncomplicated; Z79.82 Long term (current) use of aspirin; Z79.02 Long term (current) use of antithrombotics/antiplatelets; Z79.84 Long term (current) use of oral hypoglycemic drugs
CPT/HCPCS: 29848; 64718; 36415; 82948; 84295; J0690; J1596; J2371; J2405; J2704; J3010; J7120

== ENCOUNTER 2024-01-14 13:25 | Outpatient (CLI) | payer MEDICARE, SELFPAY ==
--- NOTE | ~2024-01-14 | XR_ITS ---
XR shoulder RT min 2V Ordering provider: Lenin Hidalgo MD History: . Pain in unspecified shoulder . Comparison: None. FINDINGS: BONES: No acute fracture or dislocation. JOINT SPACES: The acromioclavicular joint is normal. The glenohumeral joint is normal. SOFT TISSUES: Normal. IMPRESSION: No acute osseous abnormality right shoulder. Reviewed, dictated and finalized at location A.
--- NOTE | ~2024-01-14 | XR_ITS ---
XR shoulder LT min 2V Ordering provider: Lenin Hidalgo MD History: . Pain in unspecified shoulder . Comparison: None. FINDINGS: BONES: No acute fracture or dislocation. JOINT SPACES: The acromioclavicular joint shows osteoarthritic changes.. The glenohumeral joint is no rmal. SOFT TISSUES: Normal. IMPRESSION: No acute osseous abnormality left shoulder. Reviewed, dictated and finalized at location A.
== END 2024-01-14 13:26 | disposition home or self-care (01) ==
LOC: MICIMG 13:26
PROVIDERS: PCP Nurse Practitioner Family; Visit Provider Pain Medicine Interventional Pain Medicine
DX: M25.519 Pain in unspecified shoulder (principal)
CPT/HCPCS: 73030

== ENCOUNTER 2024-02-08 14:18 | Outpatient (CLI) | payer MEDICARE, SELFPAY ==
[2024-02-08 14:39] LABS: Basophils Absolute Auto 0.1 K/mm3 (0.0-0.1); Basophils Percent Auto 1.3 % (0.2-1.2); Eosinophils Absolute Auto 0.2 K/mm3 (0-0.3); Eosinophils Percent Auto 2.8 % (0-4.4); Hematocrit 37.6 % (42.0-52.0); Hemoglobin 12.3 g/dL (14.0-18.0); Immature Granulocyte Absolute 0.05 K/mm3 (0.00-0.031); Immature Granulocyte Percent A 0.7 % (0-0.5); Lymphocytes Absolute Auto 2.19 K/mm3 (0.9-3.2); Lymphocytes Percent Auto 29.1 % (18.3-44.2); Mean Corpuscular HGB Conc 32.7 g/dl (32-36); Mean Corpuscular Hemoglobin 29.7 pg (26-34); Mean Corpuscular Volume 90.8 fl (80-100); Monocytes Absolute Auto 0.8 K/mm3 (0.1-0.6); Monocytes Percent Auto 10.4 % (2.6-8.5); Neutrophils Absolute Auto 4.2 K/mm3 (1.3-6.7); Neutrophils Percent Auto 55.7 % (45.5-73.1); Platelet Count Result 342 k/mm3 (150-375); Red Blood Count 4.14 M/mm3 (4.6-6.20); White Blood Count 7.5 K/mm3 (4.5-10.0)
[2024-02-08 16:48] LABS: Iron 43 ug/dL (49-181)
[2024-02-08 16:50] LABS: Alanine Aminotransferase 27 U/L (6-50); Albumin Level 4.5 g/dL (3.5-5.1); Alkaline Phosphatase 91 U/L (38-126); Anion Gap 13 mmol/L (4-12); Aspartate Amino Transferase 36 U/L (17-59); Bilirubin,Total 0.4 mg/dL (0.2-1.3); Blood Urea Nitrogen 15 mg/dL (9-20); Calcium 9.6 mg/dL (8.4-10.2); Carbon Dioxide 26 mmol/L (22-30); Chloride 96 mmol/L (98-107); Estimated Glomerular Filt Rate > 60; Glucose 154 mg/dL (65-110); Sodium 135 mmol/L (137-145)
[2024-02-08 16:59] LABS: Percent Iron Saturation 9 % (20-50)
== END 2024-02-08 14:19 | disposition home or self-care (01) ==
LOC: ANHLAB 14:20
PROVIDERS: PCP Nurse Practitioner Family; Visit Provider Internal Medicine Hematology & Oncology
DX: D64.9 Anemia, unspecified (principal)
CPT/HCPCS: 36415; 80053; 82607; 82728; 82746; 83540; 83550; 83921; 84238; 85025

== ENCOUNTER 2024-06-23 12:41 | Emergency (ER) | payer MEDICARE, SELFPAY ==
[2024-06-23 12:50] VITALS: BP 157/61; PULSE 66; RESP 18; TEMP 36.7; O2SAT 97
[2024-06-23 13:14] LABS: EDCOVIDSCREEN Negative (Negative)
--- NOTE | 2024-06-23 13:14 | ED_ITS ---
HPI - URI/Sore Throat General Chief Complaint: Upper Respiratory Infection Stated Complaint: cold like Time Seen by Provider: 06/23/24 13:00 Source: patient Mode of arrival: ambulatory Limitations: no limitations History of Present Illness HPI Narrative: 74-year-old male presents with complaint of sinus congestion postnasal drainage for Approximately 1 week. reports sinus symptoms started ramping up last week when weather became warm. Has had cough, chest congestion, increase and Sinus and postnasal drainage in the last 3 days. Feeling fatigued. Afebrile. No body aches, chills. Reports sinus headache at this time. Started cnwu-oov-myeongs Robitussin to treat cough. Reports drainage changed from yellow to green. Concern for sinus infection. All systems reviewed and negative except as noted above. Related Data Home Medications ?Medication ?Instructions ?Recorded ?Confirmed ?Last Taken ?Type hydrocodone 5 mg-acetaminophen 325 1 tablet PO BID PRN Back Pain 03/08/19 05/10/24 12/23/23 History mg tablet nitroglycerin 0.4 mg sublingual 0.4 mg sublingual Q5-15M PRN Chest 03/08/19 05/10/24 Unknown History tablet (Nitrostat) Pain aspirin 81 mg tablet,delayed 81 mg PO DAILY 01/03/21 05/10/24 Unknown History release (Adult Low Dose Aspirin) ferrous sulfate 325 mg (65 mg 325 mg PO DAILY 12/07/23 05/10/24 Unknown History iron) tablet omega-3 fatty acids 1,000 mg 4,000 mg PO DAILY 12/17/23 05/10/24 Unknown History capsule gabapentin 100 mg capsule 100 mg PO DAILY 05/10/24 05/18/24 Unknown History gabapentin 300 mg capsule See Rx Instructions .Route .COMPLEX 05/10/24 05/18/24 Unknown History Allergies Allergy/AdvReac Type Severity Reaction Status Date / Time No Known Allergies Allergy Verified 06/23/24 12:52 Review of Systems Review of Systems: CONSTITUTIONAL: Denies fever, chills, or sweats. reports fatigue. EYES: Denies visual changes, redness, or discharge. ENT: Reports rhinorrhea, congestion, postnasal drainage, sinus pressure, sore throat. Denies otalgia. CARDIOVASCULAR: Denies chest pain, palpitations, or edema. RESPIRATORY: Reports cough. Denies dyspnea. GASTROINTESTINAL: Denies abdominal pain, nausea, vomiting, or diarrhea. GENITOURINARY: Denies dysuria or hematuria. SKIN: Denies rash or itching. MUSCULOSKELETAL: Denies back pain, joint pain, or myalgia. NEUROLOGIC: Denies headache, numbness, or weakness. PSYCHIATRIC: Denies anxiety or depression. All other systems reviewed are negative, except as documented in HPI. [facility] Past Medical History Medical History ASHD (arteriosclerotic heart disease) Anxiety and depression Benign prostatic hyperplasia Chronic GERD DM w/o complication type II Essential (primary) hypertension Fatty liver Unspecified hemorrhoids Other and unspecified hyperlipidemia Inflammatory polyps of colon with unspecified complications Primary osteoarthritis involving multiple joints Surgical History Surgical History H/O heart artery stent H/O colonoscopy S/P cervical disc replacement H/O heart artery stent Family History Family History Father Family history of heart disease in male family member before age 55 Acute myocardial infarction Mother No problems noted. Other Acute myocardial infarction Social History Social History Social History: Caffeine-soda Smoking status: Never smoker Tobacco type: cigarettes Second hand tobacco smoke exposure: Yes Alcohol intake: current Drinks per week: 14 Alcohol use details: beer Substance use: current Substance use type: marijuana Other substance usage details: SMOKES MARIJUANA AT INTERVALS Do You Feel Safe in your Home?: Yes Lack of Transportation: No Lack of Food: Never True Current Housing: I Have Housing Concerned About Future Housing: No Difficulty Paying Gas/Electric Bills: No Difficulty Paying for Meds: No Currently Unemployed: No Education: Associate Degree Difficulty w/ Childcare or Family Care: No Living arrangements: with family Additional living arrangements comments: Occupation/Education: retired Gender identity (if verbalized by the patient): Male Sexual Orientation (if Verbalized by the Patient): Straight or Heterosexual Spiritual care concerns: No Agree to blood products: Yes Comments At time of signature, agree with nursing past medical, surgical, social and family history. There is no relevant family history pertinent to the presenting complaint. Exam Narrative: GENERAL: This is a well-nourished, well-developed patient, in no apparent distress. HEAD: normocephalic, atraumatic. EYES: PERRL. Sclera clear/white. Vision is grossly intact. EARS: External ears normal, auditory canals clear and without drainage, TMs normal without perforation. Hearing grossly intact. NOSE: External nose normal with purulent nasal drainage, erythema and swelling to bilateral nares. Maxillary sinus tenderness on palpation. THROAT: Mucous membranes moist, Erythema postnasal drainage. No swelling or exudates. NECK: Neck supple, non-tender without lymphadenopathy, masses or thyromegaly. CARDIOVASCULAR: Regular rate and rhythm without murmurs, gallops, or rubs. RESPIRATORY: Clear to auscultation. Breath sounds equal bilaterally. No wheezes, rales, or rhonchi. SKIN: warm, Dry, intact with no suspicious lesions or rash, good texture and turgor. NEURO: awake, alert, and oriented to person, place and time. There were no obvious focal neurologic abnormalities. EXTREMITIES: No joint tenderness, effusion, or edema noted. Course Course Level of Care: Express Care Visit Vital Signs Vital signs: Vital Signs Temperature 36.7 C 06/23/24 12:50 Pulse Rate 66 06/23/24 12:50 Respiratory Rate 18 06/23/24 12:50 Blood Pressure 157/61 H 06/23/24 12:50 Pulse Oximetry 97 06/23/24 12:50 Oxygen Delivery Room Air 06/23/24 12:50 Temperature 36.7 C 06/23/24 12:50 Pulse Rate 66 06/23/24 12:50 Respiratory Rate 18 06/23/24 12:50 Blood Pressure 157/61 H 06/23/24 12:50 Pulse Oximetry 97 06/23/24 12:50 Oxygen Delivery Room Air 06/23/24 12:50 Reviewed MDM - URI/Sore Throat MDM Narrative Medical decision making narrative: negative COVID and influenza testing. Patient is alert, nontoxic. Will treat for bacterial sinusitis due to duration of symptoms and exam findings. Patient agrees with plan of care. Will continue an bmdt-snf-zjejant cold and sinus medication to treat symptoms. Please be advised this is a medical document. It is intended for apos-fx-wgav communication. It is written in medical language and may contain unfamiliar abbreviations or verbiage. Medical documents are intended to carry relevant information, facts as evident, and the clinical opinion of the practitioner at the time of the encounter. This report may have been done utilizing a voice recognition system. Attempts have been made to correct errors. However, there may be uncorrected grammatical, spelling, and recognition errors present. The file time of this note does not necessarily represent the time of service. Differential Diagnosis Differential diagnosis: Likely upper respiratory infection, sinusitis and viral infection Discharge Plan Discharge Clinical Impression: Acute bacterial sinusitis Patient Disposition: Home, Self-Care Condition: Stable Instructions: Antibiotic Form, Sinusitis (ED) Additional Instructions: Take medications as prescribed. Continued jleu-hov-uvfqrdp medication to treat her symptoms such as DayQuil NyQuil cold and Sinus. Drink at least 64 oz of water a day. Place cool mist humidifier in bedroom where you sleep. See your doctor symptoms are not improving. Patient Language: Lao Prescriptions: New doxycycline hyclate 100 mg capsule 100 mg PO BID 7 Days Qty: 14 0RF fluticasone propionate [Flonase Allergy Relief] 50 mcg/actuation spray,suspension 1 spray intranasal BID Qty: 16 0RF Rx Instructions: administer into each nostril No Action aspirin [Adult Low Dose Aspirin] 81 mg tablet,delayed release (DR/EC) 81 mg PO DAILY Patient Comments: ...... pantoprazole 40 mg tablet,delayed release (DR/EC) See Rx Instructions .ROUTE .COMPLEX Qty: 90 1RF Dose Instruction: TAKE 1 TABLET BY MOUTH AT BEDTIME Rx Instructions: TAKE 1 TABLET BY MOUTH AT BEDTIME gabapentin 300 mg capsule See Rx Instructions .ROUTE .COMPLEX Dose Instruction: TAKE 1 CAPSULE BY MOUTH EVERY DAY AT BEDTIME Rx Instructions: TAKE 1 CAPSULE BY MOUTH EVERY DAY AT BEDTIME gabapentin 100 mg capsule 100 mg PO DAILY potassium chloride 10 mEq capsule, extended release 10 meq PO DAILY Qty: 90 1RF ferrous sulfate 325 mg (65 mg iron) tablet 325 mg PO DAILY nitroglycerin [Nitrostat] 0.4 mg Tablet, Sublingual 0.4 mg SUBLINGUAL Q5-15M PRN (Reason: Chest Pain) hydrocodone-acetaminophen 5-325 mg Tablet 1 tablet PO BID PRN (Reason: Back Pain) omega-3 fatty acids 1,000 mg Capsule 4,000 mg PO DAILY lancets [Micro Thin Lancets] 33 gauge misc See Rx Instructions .ROUTE .COMPLEX Qty: 200 1RF Dose Instruction: USE TO TEST DAILY DIRECTED Rx Instructions: use to test once a day sildenafil 100 mg tablet See Rx Instructions .ROUTE .COMPLEX Qty: 20 9RF Dose Instruction: TAKE ONE (1) TABLET BY MOUTH EVERY DAY 3O MINUTES TO 4 HOURS PRIOR TO SEXUAL ACTIVITY NEEDED Rx Instructions: TAKE ONE (1) TABLET BY MOUTH EVERY DAY 3O MINUTES TO 4 HOURS PRIOR TO SEXUAL ACTIVITY NEEDED (DME) True Metrix Glucose Test Strip Strip See Rx Instructions .ROUTE .COMPLEX Qty: 200 0RF Dose Instruction: USE TO TEST BLOOD SUGAR TWICE DAILY Rx Instructions: USE TO TEST BLOOD SUGAR TWICE DAILY valsartan-hydrochlorothiazide 320-12.5 mg tablet See Rx Instructions .ROUTE .COMPLEX Qty: 90 0RF Dose Instruction: TAKE 1 TABLET BY MOUTH DAILY Rx Instructions: TAKE 1 TABLET BY MOUTH DAILY clopidogrel 75 mg tablet See Rx Instructions .ROUTE .COMPLEX Qty: 90 1RF Dose Instruction: TAKE 1 TABLET BY MOUTH DAILY Rx Instructions: TAKE 1 TABLET BY MOUTH DAILY metoprolol succinate 50 mg tablet extended release 24 hr See Rx Instructions .ROUTE .COMPLEX Qty: 90 0RF Dose Instruction: TAKE 1 TABLET BY MOUTH DAILY Rx Instructions: TAKE 1 TABLET BY MOUTH DAILY methocarbamol 750 mg tablet See Rx Instructions .ROUTE .COMPLEX Qty: 90 0RF Dose Instruction: TAKE 1 TABLET BY MOUTH THREE TIMES DAILY NEEDED FOR MUSCLE SPASM Rx Instructions: TAKE 1 TABLET BY MOUTH THREE TIMES DAILY NEEDED FOR MUSCLE SPASM lorazepam 0.5 mg tablet 0.5 mg PO BID PRN (Reason: Anxiety) Qty: 60 1RF rosuvastatin 40 mg tablet See Rx Instructions .ROUTE .COMPLEX Qty: 90 1RF Dose Instruction: TAKE 1 TABLET BY MOUTH DAILY Rx Instructions: TAKE 1 TABLET BY MOUTH DAILY glipizide 5 mg tablet See Rx Instructions .ROUTE .COMPLEX Qty: 90 0RF Dose Instruction: TAKE 1 TABLET BY MOUTH EVERY DAY IN THE MORNING AND 1/2 TABLET IN THE EVENING Rx Instructions: TAKE 1 TABLET BY MOUTH EVERY DAY IN THE MORNING AND 1/2 TABLET IN THE EVENING metformin 1,000 mg tablet See Rx Instructions .ROUTE .COMPLEX Qty: 180 0RF Dose Instruction: TAKE 1 TABLET BY MOUTH TWICE DAILY Rx Instructions: TAKE 1 TABLET BY MOUTH TWICE DAILY Follow-up/Referrals: Ramo Landaverde MD [Primary Care Provider] - Time of Disposition: 13:12
[2024-06-23 13:17] LABS: EDINFLUASCREEN Negative (Negative); EDINFLUBSCREEN Negative (Negative)
--- OUTSIDE RECORDS SUMMARY | 2024-06-23 14:06 | XMS_ITS | Clinical Summary ---
Author Organization [facility] Address [address] [place] [address] Care Team Providers Care Bus Washer Name Role Phone Ramo Landaverde MD Primary Care Provider [phone] Allergies No known active allergies Medications clopidogrel (PLAVIX) 75 MG tablet Take 1 tablet (75 mg total) by mouth daily. 3 Active aspirin EC (ECOTRIN) 81 MG tablet Take 1 tablet (81 mg total) by mouth daily. Active glipiZIDE (GLUCOTROL) 5 MG tablet Take 0.5-1 tablets (2.5-5 mg total) by mouth see administration instructions. Take 1 tablet (5 mg) in the morning and 0.5 tablet (2.5 mg) in the evening. 3 Active HYDROcodone-ac etaminophen (NORCO) 5-325 MG tablet Take 1 tablet by mouth 2 (two) times daily as needed. 3 Active LORazepam (ATIVAN) 0.5 MG tablet Take 1 tablet (0.5 mg total) by mouth 2 (two) times daily as needed. FOR ANXIETY 3 Active metFORMIN (GLUCOPHAGE) 1000 MG tablet Take 1 tablet (1,000 mg total) by mouth 2 (two) times daily. 3 Active methocarbamol (ROBAXIN) 750 MG Tab Take 1 tablet (750 mg total) by mouth 3 (three) times daily as needed (spasms). 3 Active metoprolol succinate ER (TOPROL-XL) 50 MG 24 hr tablet Take 1 tablet (50 mg total) by mouth daily. Active pantoprazole EC (PROTONIX) 40 MG tablet Take 1 tablet (40 mg total) by mouth nightly at bedtime. at bedtime. 3 Active rosuvastatin (CRESTOR) 40 MG tablet Take 1 tablet (40 mg total) by mouth daily. Active valsartan-hydr oCHLOROthiazid e (DIOVAN-HCT) 320-12.5 MG tablet Take 1 tablet by mouth daily. 3 Active multi vitamin/minera ls (THERA-M ENHANCED) tablet Take 1 tablet by mouth daily. Active fish oil (OMEGA-3 FATTY ACID) 1000 MG Cap capsule Take 4 capsules (4,000 mg total) by mouth daily. Active sildenafil (VIAGRA) 100 MG tablet Take 1 tablet (100 mg total) by mouth daily as needed for Erectile Dysfunction. Active potassium chloride CR (MICRO-K) 10 MEQ CR capsule Take 1 capsule (10 mEq total) by mouth daily. 4 Active folic acid (FOLVITE) 1 MG tablet Take 1 tablet (1 mg total) by mouth daily. 30 tablet 1 4 Active ferrous sulfate, 65 mg elemental, 325 (65 FE) MG tablet Take 1 tablet (325 mg total) by mouth daily with breakfast. 30 tablet 4 Active Active Problems Problem Noted Date Diagnosed Date Severe sepsis ([facility]) 11/26/2023 History of coronary artery stent placement 05/14 Coronary arteriosclerosis in [place] artery 02/27 Overview (11/26/2023): Coronary arteriosclerosis in [place] artery Immunizations Name Administration Dates Next Due Tdap (Boostrix) 10/13/2022 Social History Tobacco Use Types Packs/Day Years Used Date Smoking Tobacco: Never Smokeless Tobacco: Never Tobacco Cessation:Counseling Given: Not Answered Alcohol Use Standard Drinks/Week Comments Yes 6.7 (1 standard drink = 0.6 oz p ure alcohol) [facility] Utilities Answer Date Recorded In the past 12 months has [facility] [employer], oil, or water [employer] threatened to shut off services in your home? No 11/26/2023 Humiliation, Afraid, Rape, and Kick questionnair e Answer Date Recorded Within the last year, have y ou been afraid of your partner or ex-partner? No 11/26/2023 Within the last year, have y ou been humiliated or emotionally abused in other ways by your partner or ex-partner? No Within the last year, have y ou been kicked, hit, slapped, or otherwise physically hurt by your partner or ex-partner? No 11/26/2023 Within the last year, have y ou been raped or forced to have any kind of sexual activity by your partner or ex-partner? No 11/26/2023 Overall Financial Resource Strain (CARDIA) Answe r Date Recorded How hard is it for you to pa y for the very basics like food, housing, medical care, and heating? Not hard at all 11/26/2023 Hunger Vital Sign Answer Date Recorded Within the past 12 months, y ou worried that your food would run out before you got the money to buy more. Never true 11/26/19 24 Within the past 12 months, t he food you bought just didn't last and you didn't have money to get more. Never true 11/26/2023 PRAPARE - Transportation Answer Date Re corded In the past 12 months, has l ack of transportation kept you from medical appointments or from getting medications? No 11/11 In the past 12 months, has l ack of transportation kept you from meetings, work, or from getting things needed for daily living? No 11/26/2023 Housing Stability Vital Sign Answer Eder e Recorded In the last 12 months, was t here a time when you were not able to pay the mortgage or rent on time? No 11/26/2023 In the past 12 months, how m any times have you moved where you were living? 0 11/26/2023 At any time in the past 12 m [facility], were you homeless or living in a skilled nursing (including now)? No 11/26/2023 Sex and Gender Information Value Date Recorded Sex Assigned at Not on file Legal Sex Male 5:16 PM CDT Gender Identity Not on file Sexual Orientation Not on file Last Filed Vital Signs Vital Sign Reading Time Taken Comments Blood Pressure 158/56 11/30/2023 11:35 AM CDT Pulse 61 11/30/2023 11:35 AM CDT Temperature 36.6 C (97.9 F) 11/30/2023 11:35 AM CDT Respiratory Rate 18 11/30/2023 11:3 5 AM CDT Oxygen Saturation 96% 11/30/2023 11: 35 AM CDT Inhaled Oxygen Concentration - - Weight 89.2 kg (196 lb 10.4 oz) 11/29/2023 3:00 AM CDT Height 170.2 cm (5' 7 ) 11/26/2023 10:4 7 AM CDT Body Mass Index 30.8 11/26/2023 10:47 AM CDT Plan of Treatment Health Maintenance Due Date Last Done Comments ASCVD LDL 1950 ASCVD Statin 1950 Colorectal Cancer Screening Colonoscopy (10 Years) 1950 Hepatitis C 1969 Zoster Vaccines (1 of 2) 2001 RSV Immunization or 60+ Years (1 - Risk 60-74 years 1-dose series) 2011 Annual Medicare Wellness Visit 01/24/2016 COVID-19 Vaccine ( season) 2023 04/18/2021, 06/29/2020, 06/01/2020 Influenza Adult (#1) 2024 04/18/2021, 04/15/2019, 04/09/2018, Additional history exists DTaP, Tdap and Td Vaccines (2 - Td or Tdap) 10/13/2032 10/13/2022 Pneumococcal Vaccine: 65+ Years Completed 01/16/2022, 05/05/2016 Meningococcal B Vaccine Aged Out No l onger eligible based on patient's age to complete this topic Meningococcal Vaccine Aged Out No louisa chay eligible based on patient's age to complete this topic RSV Immunizations Under 20 Months Aged Out No longer eligible based on patient's age to complete this topic Insurance [employer] COUNTRY INSURANCE Advance Directives Documents on File Type Date Recorded 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
--- OUTSIDE RECORDS SUMMARY | 2024-06-23 14:06 | XMS_ITS | Clinical Summary ---
Author Organization [facility] [address] Address [address] [place] [address] Care Team Providers Care Rubber Turner Name Role Phone Ramo Landaverde MD Primary Care Provider [phone] Allergies No known active allergies Medications LORazepam (ATIVAN) 0.5 mg tablet take 1 Tablet (0.5MG) by oral route 2 times every day as needed [address] (PROTONIX) 40 mg EC tablet take 1 tablet (40MG) by oral route every day 0 2 Active clopidogrel (PLAVIX) 75 mg tablet take 1 by Oral route every day 0 2 Active omega-3 fatty acids-fish oil 340-1,000 mg capsule take 2 by Oral route 2 times every 0 2 Active valsartan-hydro chlorothiazide (DIOVAN HCT) 320-12.5 mg per tablet take 1 tablet by oral route every day 0 2 Active HYDROcodone-taty taminophen (NORCO) 5-325 mg per tablet take 1 tablet by oral route every 6 hours as needed for pain 0 4 Active metFORMIN (GLUCOPHAGE) 500 mg tablet take 1 tablet by oral route every day with evening meal 0 0 4 Active metoprolol XL (TOPROL-XL) 50 mg 24 hr tablet Take 1 tablet (50 mg total) by mouth daily Active rosuvastatin (CRESTOR) 40 mg tablet Take 1 tablet (40 mg total) by mouth daily Active glipiZIDE XL (GLUCOTROL XL) 5 mg 24 hr tabletIndicatio ns:type 2 diabetes mellitus Take 1 tablet (5 mg total) by mouth daily Active aspirin 81 mg enteric coated tablet Take 1 tablet (81 mg total) by mouth daily Active multivitamin capsule Take 1 capsule by mouth daily Active nitroglycerin (NITROSTAT) 0.[address] 1 tablet (0.4 mg total) under the tongue every 5 (five) minutes as needed for chest pain 25 tablet 11 3 Active methocarbamoL (ROBAXIN) 750 mg tablet Take 1 tablet (750 mg total) by mouth 3 (three) times a day Active sildenafiL (VIAGRA) 100 mg tablet Take 1 tablet (100 mg total) by mouth daily as needed Active potassium chloride ER 10 mEq CR capsule Take 1 tablet/capsule (10 mEq total) by mouth daily Active gabapentin (NEURONTIN) 100 mg capsule Take 1 capsule (100 mg total) by mouth daily as needed 4 Active gabapentin (NEURONTIN) 300 mg capsule Take 1 capsule (300 mg total) by mouth nightly 4 Active ferrous sulfate 134 mg (27 mg of elemental iron) tabletIndicatio ns:Iron Deficiency Anemia Take by mouth Active cyanocobalamin/ cobamamide (B12 SL) Place under the tongue Active ofloxacin (FLOXIN) 0.3 % otic solutionIndicat ions:Right ear pain Administer 5 drops into the right ear 2 (two) times a day for 7 days 5 mL 5 06/09/19 25 Active Problems Problem Noted Date Diagnosed Date Dysfunction of right eustachian tube 06/02/2024 Right ear pain 06/02/2024 History of coronary artery stent placement 05/14 Coronary arteriosclerosis in [place] artery 02/27 Overview (07/18/2016): Coronary arteriosclerosis in [place] artery Encounters Date Type Department Care Team Description 06/02/2024 3:00 PM WIRED MUSIC OPERATOR Office Visit [facility] Otolaryngology [address] [place] [address] Milton Carrasco II, MD Dysfunction of right eustachian tube (Primary Dx); Right ear pain from Last 3 Months Surgical History Surgery Date Site/Laterality Comments TOE SURGERY Right joint replacement-great toe TOE SURGERY Right great toe -neuroma removed PLANTAR FASCIA SURGERY Bilateral HERNIA REPAIR Medical History Medical History Date Comments Coronary artery disease Myocardial infarction (HCC) 2009 Diabetes mellitus (HCC) Hyperlipidemia Hypertension Ear problems Family History Medical History Relation Name Comments Heart failure Father Congestive Hea rt Failure; Heart failure Mother Congestive Hea rt Failure; Cause of : Congestive Heart Failure Relation Name Status Comments Father Alive Mother Social History Tobacco Use Types Packs/Day Years Used Date Smoking Tobacco: Never Smokeless Tobacco: Never Tobacco Cessation:Counseling Given: Not Answered Alcohol Use Standard Drinks/Week Comments Yes 24 (1 standard drink = 0.6 oz pu re alcohol) Sex and Gender Information Value Date Recorded Sex Assigned at Not on file Legal Sex Male 12:44 AM WIRED MUSIC OPERATOR Gender Identity Not on file Sexual Orientation Not on file Obstetrics History Last Filed Vital Signs Vital Sign Reading Time Taken Comments Blood Pressure 116/62 03/01/2024 7:59 AM WIRED MUSIC OPERATOR Pulse 58 03/01/2024 7:59 AM WIRED MUSIC OPERATOR Temperature 37 C (98.6 F) 02/07/2019 9:14 AM CDT Respiratory Rate 18 06/02/2024 2:50 PM WIRED MUSIC OPERATOR Oxygen Saturation 95% 03/01/2024 7:59 AM WIRED MUSIC OPERATOR Inhaled Oxygen Concentration - - Weight 92.5 kg (204 lb) 06/02/2024 2:50 PM WIRED MUSIC OPERATOR Height 170.2 cm (5' 7 ) 06/02/2024 2:50 PM WIRED MUSIC OPERATOR Body Mass Index 31.95 06/02/2024 2:50 PM WIRED MUSIC OPERATOR Plan of Treatment Health Maintenance Due Date Last Done Comments Colon Cancer Screening-Colonoscopy 1950 Depression Screening 1950 Fall Risk Assessment 1950 Hepatitis C Screening 1950 Hepatitis B Screening 1969 Zoster Vaccine (1 of 2) 2001 Well Visit 65+ 01/24/2016 Pneumococcal vaccine 65+ (2 of 2 - PPSV23) 06/30/2016 05/05/2016 Influenza Vaccine (#1) 2023 8, 02/16/2017, 05/05/2016, Additional history exists DTaP/Tdap/Td Vaccine (2 - Td or Tdap) 10/13/2032 10/13/2022 Medical Devices Implanted Type Area Principal Cyber Engineer Device Identifier Shelf Expiration Date Model / Serial / Lot [employer]yah [id number] Synergy 2.75mm 28mm 144cm Radiopaque 1 Access Port Inflation - [id number] - [id number] Implanted:Qty: 1 on 02/07/2019 by Fritz Goznalez MD PhD at [facility] Stent Left: Coronary [employer] 07/13/2020 [id number] / [id number] / [id number] [employer] [id number] Synergy 2.5mm 12mm 144cm Radiopaque 1 Access Port Inflation Lumen - [id number] - [id number] Implanted:Qty: 1 on 02/07/2019 by Fritz Gonzalez MD PhD at [facility] Stent Left: Coronary [employer] 10/10/2020 [id number] / [id number] / [id number] [employer] [id number] Synergy 3.5mm 20mm 144cm Radiopaque 1 Access Port Inflation Lumen - [id number] - [id number] Implanted:Qty: 1 on 02/07/2019 by Fritz Gonzalez MD PhD at [facility] Stent Left: Coronary [employer] 11/16/2020 [id number] / [id number] / [id number] [employer] [id number] Synergy 2.25mm 38mm 144cm Radiopaque 1 Access Port Inflation - [id number] - [id number] Implanted:Qty: 1 on 02/07/2019 by Fritz Gonzalez MD PhD at [facility] Stent Left: Coronary [employer] 10/12/2020 [id number] / [id number] / [id number] [employer] [id number] Synergy 3mm 38mm 144cm Radiopaque 1 Access Port Inflation Lumen - [id number] - [id number] Implanted:Qty: 1 on 02/07/2019 by Fritz Gonzalez MD PhD at [facility] Stent Left: Coronary [employer] 10/05/2020 [id number] / [id number] / [id number] [employer] [id number] Synergy 3mm 16mm 144cm Radiopaque 1 Access Port Inflation Lumen - [id number] - [id number] Implanted:Qty: 1 on 02/07/2019 by Fritz Gonzalez MD PhD at [facility] Stent Left: Coronary [employer] 09/27/2020 [id number] / [id number] / [id number] [employer] [id number] Synergy 3mm 12mm 144cm Radiopaque 1 Access Port Inflation Lumen - [id number] - [id number] Implanted:Qty: 1 on 02/07/2019 by Fritz Gonzalez MD PhD at [facility] Stent Right: Coronary [employer] 08/17/2020 [id number] / [id number] / [id number] [employer] [id number] Angio-Seal Evolution 8fr .038in Guidewire Bypass Tube Suture - [id number] Implanted:Qty: 1 on 02/07/2019 by Fritz Gonzalez MD PhD at [facility] Left: Coronary [employer] 10/11/2019 [id number] / / [id number] [employer] [id number] Angio-Seal Evolution 6fr .035in Guidewire Bypass Tube Suture - [id number] Implanted:Qty: 1 on 02/07/2019 by Fritz Gonzalez MD PhD at [facility] Left: Coronary [employer] 09/11/2019 [id number] / / [id number] Insurance [facility]ICARE [facility] [place] [employer] [facility] [employer] INSURANCE [place] [employer] MEDICARE RAILROAD Advance Directives For more information, please contact: [phone] * Full Code (Latest Code Status on File) Date Activated Date Inactivated Comments 02/07/2019 6:12 PM 02/07/2019 11:22 PM Care Teams Rubber Turner Relationship Specialty Start Date End Date Ramo Landaverde MD PCP - General Family Practice 02/03/23
--- OUTSIDE RECORDS SUMMARY | 2024-06-23 14:06 | XMS_ITS | Clinical Summary ---
Author Organization [facility] ([facility] Joseph Freeman Address [address] [place] [address] Care Team Providers Care Leave Specialist Name Role Phone Ramo Landaverde MD Primary Care Provider [phone] [phone] Allergies No known active allergies Medications aspirin (ECOTRIN EC) 81 mg Tablet, Delayed Release (E.C.) Take 81 mg by mouth daily. Active clopidogreL (PLAVIX) 75 mg Tablet Take 75 mg by mouth daily. Active pantoprazole (PROTONIX) 40 mg Tablet, Delayed Release (E.C.) Take 40 mg by mouth daily. Active nitroglycerin (NITROSTAT) 0.4 mg Tablet, Sublingual Place 0.4 mg under tongue every 5 minutes as needed for Chest Pain. Active valsartan-hydroC HLOROthiazide (DIOVAN HCT) 320-12.5 mg tablet Take 1 Tablet by mouth daily. Active metoprolol succinate (TOPROL XL) 50 mg Extended Release 24 hour tablet Take 50 mg by mouth daily. Active rosuvastatin (CRESTOR) 40 mg tablet Take 40 mg by mouth daily. Active glipiZIDE (GLUCOTROL) 5 mg tablet Take 5 mg by mouth daily with breakfast. Active metFORMIN (GLUCOPHAGE) 1,000 mg tablet Take 1,000 mg by mouth 2 times daily with meals. Active omega-3 fatty acids-fish oil 300-1,000 mg Capsule Take 1,000 Capsules by mouth daily. Active LORazepam (ATIVAN) 0.5 mg tablet Take 0.5 mg by mouth every 6 hours as needed for Anxiety. Active HYDROcodone-acet aminophen (NORCO) 10-325 mg Tablet Take 1 Tablet by mouth every 4 hours as needed for Pain, Moderate. Active MULTIVITAMIN ORAL Take by mouth daily. Active methocarbamoL (ROBAXIN) 750 mg tablet Take 750 mg by mouth 4 times daily. Active sildenafiL (VIAGRA) 100 mg tablet Take 100 mg by mouth 1 time daily as needed for Erectile Dysfunction. Active amoxicillin - clavulanate (AUGMENTIN) 125-31.25 mg/5 mL suspension Take 10 mg by mouth every 12 hours. Active Active Problems No known active problems Encounters Date Type Department Care Team Description 06/20/2024 External Device Data STL ABSTRACTION Provider, Abstract 06/14/2024 2:00 PM HOME ATTENDANT Office Visit [facility] Oncology and Hematology - [address] [place] [address] Dennis Brooks MD Chronic anemia (Primary Dx) 06/13/2024 Orders Only [facility] Oncology and Hematology - [place] [address] [place] [address] Dennis Brooks MD Chronic anemia 06/07/2024 External Device Data STL ABSTRACTION Provider, Abstract 05/30/2024 Orders Only [facility] Oncology and Hematology - [address] [place] [address] Dennis Brooks MD Chronic anemia 05/16/2024 Orders Only [facility] Oncology and Hematology - [address] [place] [address] Dennis Brooks MD Chronic anemia 05/10/2024 External Device Data STL ABSTRACTION Provider, Abstract 05/04/2024 External Device Data STL ABSTRACTION Provider, Abstract 05/04/2024 External Device Data STL ABSTRACTION Provider, Abstract 05/03/2024 Orders Only [facility] Oncology and Hematology - [address] [place] [address] Dennis Brooks MD Chronic anemia (Primary Dx) from Last 3 Months Family History Medical History Relation Name Comments Heart Disease Brother Asthma Child Heart Disease Father Diabetes Mother Heart Disease Mother Cancer Sister Relation Name Status Comments Brother Child Alive Father Mother Sister Alive Social History Tobacco Use Types Packs/Day Years Used Date Smoking Tobacco: Never Smokeless Tobacco: Never Tobacco Cessation:Counseling Given: Not Answered Alcohol Use Standard Drinks/Week Comments Yes 0 (1 standard drink = 0.6 oz pur e alcohol) Ocasionally Sex and Gender Information Value Date Recorded Sex Assigned at Not on file Legal Sex Male 9:48 AM CDT Gender Identity Not on file Sexual Orientation Not on file Last Filed Vital Signs Vital Sign Reading Time Taken Comments Blood Pressure 144/77 06/14/2024 1:58 PM HOME ATTENDANT Pulse 68 06/14/2024 1:57 PM HOME ATTENDANT Temperature 35.7 C (96.3 F) 06/14/2024 1:57 PM HOME ATTENDANT Respiratory Rate 15 06/14/2024 1:57 PM HOME ATTENDANT Oxygen Saturation 97% 06/14/2024 1:57 PM HOME ATTENDANT Inhaled Oxygen Concentration - - Weight 92 kg (202 lb 12.8 oz) 06/14/2024 1:57 PM HOME ATTENDANT Height 170.2 cm (5' 7 ) 02/08/2024 1:37 PM CDT Body Mass Index 31.76 02/08/2024 1:37 PM CDT Plan of Treatment Upcoming Encounters Date Type Department Care Team (Late st Contact Info) Description 09/15/2024 2:45 PM CDT Office Visit [facility] Oncology and Hematology - [place] [address] [facility] [address] [place] [address] Dennis Brooks MD [address] [facility] [address] [place] [address] Health Maintenance Due Date Last Done Comments Traditional Medicare (ACO) Annual Wellness Visit 01/23 COLORECTAL SCREENING 01/24/1996 Colorectal Cancer Screening 01/24/1996 FIT-DNA Q 3 years 01/24/1996 FIT/FOBT Q 1 year 01/24/1996 Flex Sig/CT Colonography Q 5 years 01/24/1996 PNEUMOCOCCAL VACCINE 50+ YEARS (1 of 1 - PCV) 01/24/20 ZOSTER VACCINE (1 of 2) 2001 INFLUENZA VACCINE (#1) 2023 RSV VACCINE (60+ or ) (1 - 1-dose 75+ series) 2026 DTAP/TDAP/TD VACCINES (2 - Td or Tdap) 10/13/2032 Insurance [employer] MEDICARE RAILROAD Care Teams Leave Specialist Relationship Specialty Start Date End Date Ramo Landaverde MD [address] [place] [address] PCP - General Family Practice 03/03/24
--- OUTSIDE RECORDS SUMMARY | 2024-06-23 14:06 | XMS_ITS | Referral Summary ---
Author Organization [facility] [address] Address [address] [place] [address] Care Team Providers Care Rouge Sifter Name Role Phone Ramo Landaverde MD Primary Care Provider [phone] [phone] Encounters Date Type Department Care Team Description 06/02/2024 3:00 PM LITHOGRAPHIC PROOFER Office Visit [facility] Otolaryngology [address] [place] [address] Milton Carrasco II, MD Dysfunction of right eustachian tube (Primary Dx); Right ear pain from Last 3 Months Allergies No known active allergies Medications LORazepam [...] artery stent placement 05/14 Coronary arteriosclerosis in [place] artery 02/27 Overview (07/18/2016): Coronary arteriosclerosis in [place] artery Social History Tobacco Use Types Packs/Day Years Used Date Smoking Tobacco: Never Smokeless Tobacco: Never Tobacco Cessation:Counseling Given: Not Answered Alcohol Use Standard Drinks/Week Comments Yes 24 (1 standard drink = 0.6 oz pu re alcohol) Sex and Gender Information Value Date Recorded Sex Assigned at Not on file Legal Sex Male 12:44 AM LITHOGRAPHIC PROOFER Gender Identity Not on file Sexual Orientation Not on file Last Filed Vital Signs Vital Sign Reading Time Taken Comments Blood Pressure 116/62 03/01/2024 7:59 AM LITHOGRAPHIC PROOFER Pulse 58 03/01/2024 7:59 AM LITHOGRAPHIC PROOFER Temperature 37 C (98.6 F) 02/07/2019 9:14 AM CDT Respiratory Rate 18 06/02/2024 2:50 PM LITHOGRAPHIC PROOFER Oxygen Saturation 95% 03/01/2024 7:59 AM LITHOGRAPHIC PROOFER Inhaled Oxygen Concentration - - Weight 92.5 kg (204 lb) 06/02/2024 2:50 PM LITHOGRAPHIC PROOFER Height 170.2 cm (5' 7 ) 06/02/2024 2:50 PM LITHOGRAPHIC PROOFER Body Mass Index 31.95 06/02/2024 2:50 PM LITHOGRAPHIC PROOFER Plan of Treatment Not on file Medical Devices Implanted Type Area Puppet Maker Device Identifier Shelf Expiration Date Model / Serial / Lot [employer] Liyah [id number] Synergy 2.75mm 28mm 144cm Radiopaque 1 Access Port Inflation - [id number] - [id number] Implanted:Qty: 1 on 02/07/2019 by Fritz Gonzalez MD PhD at [facility] Stent Left: Coronary [employer] 07/13/2020 [id number] / [id number] / [id number] [employer] [id number] Synergy 2.5mm 12mm 144cm Radiopaque 1 Access Port Inflation Lumen - [id number] - [id number] Implanted:Qty: 1 on 02/07/2019 by Fritz Gonzalez MD PhD at [facility] Stent Left: Coronary [employer] 10/10/2020 [id number] / [id number] / [id number] [employer] [id number] Synergy 3.5mm 20mm 144cm Radiopaque 1 Access Port Inflation Lumen - [id number] - [id number] Implanted:Qty: 1 on 02/07/2019 by Fritz Gonzalez MD PhD at [facility] Stent Left: Coronary [employer] 11/16/2020 [id number] / [id number] / [id number] [employer] [id number] Synergy 2.25mm 38mm 144cm Radiopaque 1 Access Port Inflation - [id number] - [id number] Implanted:Qty: 1 on 02/07/2019 by Fritz Gonzalez MD PhD at [facility] Stent Left: Coronary [employer] 10/12/2020 [id number] / [id number] / [id number] [employer] [id number] Synergy 3mm 38mm 144cm Radiopaque 1 Access Port Inflation Lumen - [id number] - [id number] Implanted:Qty: 1 on 02/07/2019 by Fritz Gonzalez MD PhD at [facility] Stent Left: Coronary [employer] 10/05/2020 [id number] / [id number] / [id number] [employer] [id number] Synergy 3mm 16mm 144cm Radiopaque 1 Access Port Inflation Lumen - [id number] - [id number] Implanted:Qty: 1 on 02/07/2019 by Fritz Gonzalez MD PhD at [facility] Stent Left: Coronary [employer] 09/27/2020 [id number] / [id number] / [id number] [employer] [id number] Synergy 3mm 12mm 144cm Radiopaque 1 Access Port Inflation Lumen - [id number] - [id number] Implanted:Qty: 1 on 02/07/2019 by Fritz Gonzalez MD PhD at [facility] Stent Right: Coronary [employer] 08/17/2020 [id number] / [id number] / [id number] [employer] [id number] Angio-Seal Evolution 8fr .038in Guidewire Bypass Tube Suture - [id number] Implanted:Qty: 1 on 02/07/2019 by Fritz Gonzalez MD PhD at [facility] Left: Coronary [employer] 10/11/2019 [id number] / / [id number] [employer] [id number] Angio-Seal Evolution 6fr .035in Guidewire Bypass Tube Suture - [id number] Implanted:Qty: 1 on 02/07/2019 by Fritz Gonzalez MD PhD at [facility] Left: Coronary [employer] 09/11/2019 [id number] / / [id number] Insurance [employer] MEDICARE [employer] MEDICARE RAILROAD [employer] MEDIC[employer] RAILROAD Advance Directives For more information, please contact: [phone] * Full Code (Latest Code Status on File) Date Activated Date Inactivated Comments 02/07/2019 6:12 PM 02/07/2019 11:22 PM Care Teams Rouge Sifter Relationship Specialty Start Date End Date Ramo Landaverde MD PCP - General Family Practice 02/03/23
== END 2024-06-23 13:18 | disposition home or self-care (01) ==
PROVIDERS: Emergency Provider Nurse Practitioner Family; PCP Family Medicine
DX: J01.90 Acute sinusitis, unspecified (principal); B96.89 Other specified bacterial agents as the cause of diseases classified elsewhere; E11.9 Type 2 diabetes mellitus without complications; I10 Essential (primary) hypertension; E78.5 Hyperlipidemia, unspecified; K76.0 Fatty (change of) liver, not elsewhere classified; Z20.822 Contact with and (suspected) exposure to COVID-19
CPT/HCPCS: 87426; 87804; 99213; G0463

== ENCOUNTER 2024-07-26 12:56 | Outpatient (CLI) | payer MEDICARE, SELFPAY ==
[2024-07-26 13:25] LABS: Hemoglobin 13.8 g/dL (14.0-18.0)
[2024-07-26 13:39] LABS: Anion Gap 14 mmol/L (4-12); Blood Urea Nitrogen 8 mg/dL (9-20); Calcium 8.6 mg/dL (8.4-10.2); Carbon Dioxide 25 mmol/L (22-30); Chloride 95 mmol/L (98-107); Estimated Glomerular Filt Rate > 60; Glucose 212 mg/dL (65-110); Potassium 3.5 mmol/L (3.4-5.0); Sodium 134 mmol/L (137-145)
--- OUTSIDE RECORDS SUMMARY | 2024-07-26 13:55 | XMS_ITS | Encounter Summary ---
Author Organization [facility] Transcriptic Address [address] [place] [address] Care Team Providers Care Hotel Maintenance Worker Name Role Phone Ramo Landaverde MD Primary Care Provider [phone] Encounter Details Date Type Department Care Team ([facility] Contact Info) Description 07/25/2024 Orders Only [facility] Oncology and Hematology [address] [place] [address] Dennis Brooks MD [facility] [address] [place] [address] Chronic anemia Social History Tobacco Use Types Packs/Day Years Used Date Smoking Tobacco: Never Smokeless Tobacco: Never Alcohol Use Standard Drinks/Week Comments Yes 0 (1 standard drink = 0.6 oz pur e alcohol) Ocasionally Sex and Gender Information Value Date Recorded Sex Assigned at Not on file Legal Sex Male 9:48 AM CDT Gender Identity Not on file Sexual Orientation Not on file documented as of this encounter Plan of Treatment Upcoming Encounters Date Type Department Care Team ([facility] Contact Info) Description 09/15/2024 2:45 PM CDT Office Visit [facility] Oncology and Hematology - [place] [address] [place] [address] Dennis Brooks MD [address] [place] [address] documented as of this encounter Visit Diagnoses Diagnosis Chronic anemia Anemia, unspecified documented in this encounter Care Teams Hotel Maintenance Worker Relationship Specialty Start Date End Date Ramo Landaverde MD [address] [place] [id number] PCP - General Family Practice 03/03/24 documented as of this encounter
--- OUTSIDE RECORDS SUMMARY | 2024-07-26 13:55 | XMS_ITS | Clinical Summary ---
Author Organization [facility] Address [address] [place] [address] Care Team Providers Care Tack Puller Name Role Phone Ramo Landaverde MD Primary Care Provider [phone] Allergies No known active allergies Medications clopidogrel [...] Problem Noted Date Diagnosed Date Severe sepsis ([facility]) 11/26/2023 History of coronary artery stent placement 05/14 Coronary arteriosclerosis in [place] artery 02/27 Overview (11/26/2023): Coronary arteriosclerosis in [place] artery Immunizations Immunization Administration Dates Next Due Tdap (Boostrix) 10/13/2022 Social History Tobacco Use Types Packs/Day Years Used Date Smoking Tobacco: Never Smokeless Tobacco: Never Tobacco Cessation:Counseling Given: Not Answered Alcohol Use Standard Drinks/Week Comments Yes 6.7 (1 standard drink = 0.6 oz p ure alcohol) [facility] Utilities Answer Date Recorded In the past 12 months has f [facility] [employer], oil, or water [employer] threatened to shut off services in your [...] any time in the past 12 m [facility], were you homeless or living in a fdc (including now)? No 11/26/2023 Sex and Gender [...] Annual Medicare Wellness Visit 01/24/2016 COVID-19 Vaccine (4 - 2023-2 5 season) 2023 04/18/2021, 06/29/2020, 06/01/2020 DTaP, Tdap and Td Vaccines ( 2 - Td or Tdap) 10/13/2032 10/13/2022 Pneumococcal Vaccine: 50+ Years Completed 01/16/2022, 05/05/2016 Meningococcal B Vaccine Aged Out No l onger eligible based on patient's age to complete this topic Meningococcal Vaccine Aged Out No louisa chay eligible based on patient's age to complete this topic RSV Immunizations Under 20 Months Aged Out No longer eligible b ased on patient's age to complete this topic Insurance MEDICARE COUNTRY INSURANCE Advance Directives Documents on File Type Date Recorded Patient Construction Specialist Expl anation Advance Directives and Living Will 01/11/2024 10:33 AM 01/08/2024 POLST * Full Code (Latest Code Status on File) Date Activated Date Inactivated Comments 11/26/2023 12:17 PM 11/30/2023 5:28 PM Care Teams Tack Puller Relationship Specialty Start Date End Date Ramo Landaverde MD [address] [place] [address] PCP - General FAMILY PRACTICE 10/13/22
--- OUTSIDE RECORDS SUMMARY | 2024-07-26 13:55 | XMS_ITS | Clinical Summary ---
Author Organization [facility] Address [address] [place] [address] Care Team Providers Care Flyer Builder Name Role Phone Ramo Landaverde MD Primary Care Provider [phone] Allergies No known active allergies Medications aspirin [...] Encounters Date Type Department Care Team Description 07/25/2024 Orders Only [facility] Oncology and Hematology - Armando Zina Wu [address] Dennis Brooks MD Chronic anemia 07/19/2024 External Device Data STL ABSTRACTION Provider, Abstract 07/11/2024 Orders Only [facility] Oncology and Hematology - Armando Zina Wu [address] [place] [phone] Dennis Brooks MD Chronic anemia 06/29/2024 External Device Data STL ABSTRACTION Provider, Abstract 06/27/2024 Orders Only [facility] Oncology and Hematology - Armando Zina Wu [address] [place] [id number] Dennis Brokos MD Chronic anemia 06/20/2024 External Device Data STL ABSTRACTION Provider, Abstract 06/14/2024 2:00 PM LAND DEPARTMENT HEAD Office Visit [facility] Oncology and Hematology - Armando Zina Wu [address] [place] [phone] Dennis Brooks MD Chronic anemia (Primary Dx) 06/13/2024 Orders Only [facility] Oncology and Hematology - Armando Zina Wu [address] [place] [phone] Dennis Brooks MD Chronic anemia 06/07/2024 External Device Data STL ABSTRACTION Provider, Abstract 05/30/2024 Orders Only [facility] Oncology and Hematology - Armando Zina Wu [address] [place] [phone] Dennis Brooks MD Chronic anemia 05/16/2024 Orders Only [facility] Oncology and Hematology - Armando Zina Wu [address] [place] [phone] Dennis Brooks MD Chronic anemia 05/10/2024 External Device Data STL ABSTRACTION Provider, Abstract 05/04/2024 External Device Data STL ABSTRACTION Provider, Abstract 05/04/2024 External Device Data STL ABSTRACTION Provider, Abstract 05/03/2024 Orders Only [facility] Oncology and Hematology - Armando [address] [place] [address] Dennis Brooks MD Chronic anemia (Primary Dx) [...] Comments Blood Pressure 144/77 06/14/2024 1:58 PM LAND DEPARTMENT HEAD Pulse 68 06/14/2024 1:57 PM LAND DEPARTMENT HEAD Temperature 35.7 C (96.3 F) 06/14/2024 1:57 PM LAND DEPARTMENT HEAD Respiratory Rate 15 06/14/2024 1:57 PM LAND DEPARTMENT HEAD Oxygen Saturation 97% 06/14/2024 1:57 PM LAND DEPARTMENT HEAD Inhaled Oxygen Concentration - - Weight 92 kg (202 lb 12.8 oz) 06/14/2024 1:57 PM LAND DEPARTMENT HEAD Height 170.2 cm (5' 7 ) 02/08/2024 1:37 PM CDT Body Mass Index 31.76 02/08/2024 1:37 PM CDT Plan of Treatment Upcoming Encounters Date Type Department Care Team (Late st Contact Info) Description 09/15/2024 2:45 PM CDT Office Visit [facility] Oncology and Hematology - Arm[address] [place] [address] Dennis Brooks MD [address] [facility] [address] [place] [address] Health Maintenance Due Date Last Done Comments [...] (2 - Td or Tdap) 10/13/2032 Insurance [employer] MEDICARE RAILROAD Care Teams Flyer Builder Relationship Specialty Start Date End Date Ramo Landaverde MD [address] [place] [address] PCP - General Family Practice 03/03/24
--- OUTSIDE RECORDS SUMMARY | 2024-07-26 13:55 | XMS_ITS | Referral Summary ---
Author Organization [facility] [address] Address [address] [place] [address] Care Team Providers Care Education Courses Sales Representative Name Role Phone Ramo Landaverde MD Primary Care Provider [phone] Encounters Date Type Department Care Team Description 06/02/2024 3:00 PM INSPECTOR AND MENDER Office Visit [facility] Otolaryngology [address] [place] [address] Milton Carrasco II, MD Dysfunction of right eustachian tube (Primary Dx); Right ear pain from Last 3 Months Allergies No known active allergies Medications LORazepam (ATIVAN) 0.5 mg tablet take 1 Tablet (0.5MG) by oral route 2 times every day as needed 0 11/27/[address] (PROTONIX) 40 mg EC tablet take 1 tablet (40MG) by oral route every day 0 11/27/2011 Active clopidogrel (PLAVIX) 75 mg tablet take 1 by Oral route every day 0 11/27/2011 Active omega-3 fatty acids-fish oil 340-1,000 mg capsule take 2 by Oral route 2 times every 0 11/27/2011 Active valsartan-hydro chlorothiazide (DIOVAN HCT) 320-12.5 mg per tablet take 1 tablet by oral route every day 0 11/27/2011 Active HYDROcodone-taty taminophen (NORCO) 5-325 mg per tablet take 1 tablet by oral route every 6 hours as needed for pain 0 06/23/2013 Active metFORMIN (GLUCOPHAGE) 500 mg tablet take 1 tablet by oral route every day with evening meal 0 0 08/11/2013 Active metoprolol XL (TOPROL-XL) 50 mg 24 [...] needed for chest pain 25 tablet 11 02/03/2023 Active methocarbamoL (ROBAXIN) 750 mg tablet Take 1 tablet (750 mg total) by mouth 3 (three) times a day Active sildenafiL (VIAGRA) 100 mg tablet Take 1 tablet (100 mg total) by mouth daily as needed Active potassium chloride ER 10 mEq CR capsule Take 1 tablet/capsu le (10 mEq total) by mouth daily Active gabapentin (NEURONTIN) 100 mg capsule Take 1 capsule (100 mg total) by mouth daily as needed 01/20/2024 Active gabapentin (NEURONTIN) 300 mg capsule Take 1 capsule (300 mg total) by mouth nightly 01/10/2024 Active ferrous sulfate 134 mg (27 mg of elemental iron) tabletIndicatio ns:Iron Deficiency Anemia Take by mouth Active cyanocobalamin/ cobamamide (B12 SL) Place under the tongue Active Active Problems Problem Noted Date Diagnosed Date Dysfunction of right eustachian tube 06/02/2024 Right ear pain 06/02/2024 History of coronary artery stent placement 05/14 Coronary arteriosclerosis in [place] artery 02/27 Overview (07/18/2016): Coronary arteriosclerosis in [place] artery Social History Tobacco Use Types Packs/Day Years Used Date Smoking Tobacco: Never Smokeless Tobacco: Never Tobacco Cessation:Counseling Given: Not Answered Alcohol Use Standard Drinks/Week Comments Yes 24 (1 standard drink = 0.6 oz pu re alcohol) Sex and Gender Information Value Date Recorded Sex Assigned at Not on file Legal Sex Male 12:44 AM INSPECTOR AND MENDER Gender Identity Not on file Sexual Orientation Not on file Last Filed Vital Signs Vital Sign Reading Time Taken Comments Blood Pressure 116/62 03/01/2024 7:59 AM INSPECTOR AND MENDER Pulse 58 03/01/2024 7:59 AM INSPECTOR AND MENDER Temperature 37 C (98.6 F) 02/07/2019 9:14 AM CDT Respiratory Rate 18 06/02/2024 2:50 PM INSPECTOR AND MENDER Oxygen Saturation 95% 03/01/2024 7:59 AM INSPECTOR AND MENDER Inhaled Oxygen Concentration - - Weight 92.5 kg (204 lb) 06/02/2024 2:50 PM INSPECTOR AND MENDER Height 170.2 cm (5' 7 ) 06/02/2024 2:50 PM INSPECTOR AND MENDER Body Mass Index 31.95 06/02/2024 2:50 PM INSPECTOR AND MENDER Plan of Treatment Not on file Medical Devices Implanted Type Area Third Rigger Device Identifier Shelf Expiration Date Model / Serial / Lot [employer] [id number] Synergy 2.75mm 28mm 144cm Radiopaque 1 Access Port Inflation - [id number] - [id number] Implanted:Qty: 1 on 02/07/2019 by Fritz Gonzalez MD PhD at [facility] Stent Left: Coronary [employer] 07/13/2020 [id number] / [id number] / [id number] [employer] [id number] Synergy 2.5mm 12mm 144cm Radiopaque 1 Access Port Inflation Lumen - [id number] - [id number] Implanted:Qty: 1 on 02/07/2019 by Fritz Gonzalez MD PhD at [facility] Stent Left: Coronary [employer] 10/10/2020 [id number] / [id number] / [id number] [employer] [id number] Synergy 3.5mm 20mm 144cm Radiopaque 1 Access Port Inflation Lumen - [id number] - [id number] Implanted:Qty: 1 on 02/07/2019 by Fritz Gonzalez MD PhD at [facility] Stent Left: Coronary [employer] 11/16/2020 [id number] / [id number] / [id number] [employer] [id number] Synergy 2.25mm 38mm 144cm Radiopaque 1 Access Port Inflation - [id number] - [id number] Implanted:Qty: 1 on 02/07/2019 by Fritz Gonzalez MD PhD at [facility] Stent Left: Coronary [employer] 10/12/2020 [id number] / [id number] / [id number] [employer] [id number] Synergy 3mm 38mm 144cm Radiopaque 1 Access Port Inflation Lumen - [id number] - [id number] Implanted:Qty: 1 on 02/07/2019 by Fritz Gonzalez MD PhD at [facility] Stent Left: Coronary [employer] 10/05/2020 [id number] / [id number] / [id number] [employer] [id number] Synergy 3mm 16mm 144cm Radiopaque 1 Access Port Inflation Lumen - [id number] - [id number] Implanted:Qty: 1 on 02/07/2019 by Fritz Gonzalez MD PhD at [facility] Stent Left: Coronary [employer] 09/27/2020 [id number] / [id number] / [id number] [employer] [id number] Synergy 3mm 12mm 144cm Radiopaque 1 Access Port Inflation Lumen - [id number] - [id number] Implanted:Qty: 1 on 02/07/2019 by Fritz Gonzalez MD PhD at [facility] Stent Right: Coronary [employer] 08/17/2020 [id number] / [id number] / [id number] [employer] [id number] Angio-Seal Evolution 8fr .038in Guidewire Bypass Tube Suture - [id number] Implanted:Qty: 1 on 02/07/2019 by Fritz Gonzalez MD PhD at [facility] Left: Coronary [employer] 10/11/2019 [id number] / / [id number] [employer] [id number] Angio-Seal Evolution 6fr .035in Guidewire Bypass Tube Suture - [id number] Implanted:Qty: 1 on 02/07/2019 by Fritz Gonzalez MD PhD at [facility] Left: Coronary [employer] 09/11/2019 [id number] / / [id number] Insurance [employer] MEDICARE RAILROAD MEDICARE RAILROAD [place] [address] MEDICARE [facility] [place] [address] Advance Directives For more information, please contact: [phone] * Full Code (Latest Code Status on File) Date Activated Date Inactivated Comments 02/07/2019 6:12 PM 02/07/2019 11:22 PM Care Teams Education Courses Sales Representative Relationship Specialty Start Date End Date Ramo Landaverde MD PCP - General Family Practice 02/03/23
--- OUTSIDE RECORDS SUMMARY | 2024-07-26 13:55 | XMS_ITS | Clinical Summary ---
Author Organization [facility] [address] Address [address] [place] [address] Care Team Providers Care Analytical Lead Name Role Phone Ramo Landaverde MD Primary Care Provider [phone] Allergies No known active allergies Medications LORazepam [...] artery stent placement 05/14 Coronary arteriosclerosis in [place] artery 02/27 Overview (07/18/2016): Coronary arteriosclerosis in [place] artery Encounters Date Type Department Care Team Description 06/02/2024 3:00 PM HIDE WORKER Office Visit [facility] Otolaryngology [address] [place] [address] Milton Carrasco II, MD Dysfunction of right eustachian tube (Primary Dx); Right ear pain from Last 3 Months Surgical History Surgery Date Site/Laterality Comments TOE SURGERY Right joint replacement-great toe TOE SURGERY Right great toe -neuroma removed PLANTAR FASCIA SURGERY Bilateral HERNIA REPAIR Medical History Medical History Date Comments Coronary artery disease Myocardial infarction (HCC) 2008 Diabetes mellitus (HCC) Hyperlipidemia Hypertension Ear problems [...] on file Legal Sex Male 12:44 AM HIDE WORKER Gender Identity Not on file Sexual Orientation Not on file Obstetrics History Last Filed Vital Signs Vital Sign Reading Time Taken Comments Blood Pressure 116/62 03/01/2024 7:59 AM HIDE WORKER Pulse 58 03/01/2024 7:59 AM HIDE WORKER Temperature 37 C (98.6 F) 02/07/2019 9:14 AM CDT Respiratory Rate 18 06/02/2024 2:50 PM HIDE WORKER Oxygen Saturation 95% 03/01/2024 7:59 AM HIDE WORKER Inhaled Oxygen Concentration - - Weight 92.5 kg (204 lb) 06/02/2024 2:50 PM HIDE WORKER Height 170.2 cm (5' 7 ) 06/02/2024 2:50 PM HIDE WORKER Body Mass Index 31.95 06/02/2024 2:50 PM HIDE WORKER Plan of Treatment Health Maintenance Due Date Last Done Comments Colon Cancer Screening-Colonoscopy 1950 Depression Screening 1950 Fall Risk Assessment 1950 Hepatitis C Screening 1950 Hepatitis B Screening 1969 Zoster Vaccine (1 of 2) 2001 Well Visit 65+ 01/24/2016 Pneumococcal vaccine 65+ (2 of 2 - PPSV23) 06/30/2016 05/05/2016 Influenza Vaccine (Season Ended) 2024 04/09/2018, 02/16/2017, 05/05/2016, Additional history exists DTaP/Tdap/Td Vaccine (2 - Td or Tdap) 10/13/2032 10/13/2022 Medical Devices Implanted Type Area Flight Service Agent Device Identifier Shelf Expiration Date Model / Serial / Lot [employer] [id number] Synergy 2.75mm 28mm 144cm Radiopaque 1 Access Port Inflation - [id number] - [id number] Implanted:Qty: 1 on 02/07/2019 by Fritz Gonzalez MD PhD at [facility] Stent Left: Coronary [employer] 07/13/2020 [id number] / [id number] / [id number] [employer] [id number] Synergy 2.5mm 12mm 144cm Radiopaque 1 Access Port Inflation Lumen - [id number] - [id number] Implanted:Qty: 1 on 02/07/2019 by Fritz Gonzalez MD PhD at [facility] Stent Left: Coronary [employer] 10/10/2020 [id number] / [id number] / [id number] [employer] [id number] Synergy 3.5mm 20mm 144cm Radiopaque 1 Access Port Inflation Lumen - [id number] - [id number] Implanted:Qty: 1 on 02/07/2019 by Fritz Gonzalez MD PhD at [facility] Stent Left: Coronary [employer] 11/16/2020 [id number] / [id number] / [id number] [employer] [id number] Synergy 2.25mm 38mm 144cm Radiopaque 1 Access Port Inflation - [id number] - [id number] Implanted:Qty: 1 on 02/07/2019 by Fritz Gonzalez MD PhD at [facility] Stent Left: Coronary [employer] 10/12/2020 [id number] / [id number] / [id number] [employer] [id number] Synergy 3mm 38mm 144cm Radiopaque 1 Access Port Inflation Lumen - [id number] - [id number] Implanted:Qty: 1 on 02/07/2019 by Fritz Gonzalez MD PhD at [facility] Stent Left: Coronary [employer] 10/05/2020 [id number] / [id number] / [id number] [employer] [id number] Synergy 3mm 16mm 144cm Radiopaque 1 Access Port Inflation Lumen - [id number] - [id number] Implanted:Qty: 1 on 02/07/2019 by Fritz Gonzalez MD PhD at [facility] Stent Left: Coronary [employer] 09/27/2020 [id number] / [id number] / [id number] [employer] [id number] Synergy 3mm 12mm 144cm Radiopaque 1 Access Port Inflation Lumen - [id number] - [id number] Implanted:Qty: 1 on 02/07/2019 by Fritz Gonzalez MD PhD at [facility] Stent Right: Coronary [employer] 08/17/2020 [id number] / [id number] / [id number] [employer] [id number] Angio-Seal Evolution 8fr .038in Guidewire Bypass Tube Suture - [id number] Implanted:Qty: 1 on 02/07/2019 by Fritz Gonzalez MD PhD at [facility] Left: Coronary [employer] 10/11/2019 [id number] / / [id number] [employer] [id number] Angio-Seal Evolution 6fr .035in Guidewire Bypass Tube Suture - [id number] Implanted:Qty: 1 on 02/07/2019 by Fritz Gonzalez MD PhD at [facility] Left: Coronary [employer] 09/11/2019 [id number] / / [id number] Insurance [employer] MEDICARE RAILROAD MEDICARE RAILROAD [employer] MEDICARE RAILROAD Advance Directives For more information, please contact: [phone] * Full Code (Latest Code Status on File) Date Activated Date Inactivated Comments 02/07/2019 6:12 PM 02/07/2019 11:22 PM Care Teams Analytical Lead Relationship Specialty Start Date End Date Ramo Landaverde MD PCP - General Family Practice 02/03/23
== END 2024-07-26 12:57 | disposition home or self-care (01) ==
PROVIDERS: Anesthesiology; PCP Family Medicine; Visit Provider Plastic Surgery
DX: I11.9 Hypertensive heart disease without heart failure (principal); D50.9 Iron deficiency anemia, unspecified
CPT/HCPCS: 36415; 80048; 85014; 85018

== ENCOUNTER 2024-08-03 00:22 | Day surgery (SDC) | payer MEDICARE, SELFPAY ==
--- NOTE | 2024-07-25 12:33 | PC.NURSE ---
Report to the Outpatient Waiting Room, entrance under the green pavilion located off [facility], at time __9:30 AM on date __08/03/24 . Planned Procedure Time: ___11:30 AM .? Time changes happen often and if your time is changed the preop area will call you the afternoon before. - You and your visitor will be asked to self-screen and do not enter if you have any COVID symptoms. Please call surgeon if you need to reschedule. - A mask is optional within the hospital at this time. NOTHING TO EAT OR DRINK 8 HOURS PRIOR TO SURGERY PER DR CAIN Take only the following medications with a SIP of water on the morning of surgery: __GABAPENTIN,HYDROCODONE IF NEEDED FOR PAIN,LORAZEPAM IF NEEDED,METOPROLOL, DO NOT STOP ANY OF YOUR OTHER PRESCRIPTION MEDICATIONS PRIOR TO SURGERY EXCEPT THE FOLLOWING Hold all vitamins and supplements for 3 days per anesthesiologist. LAST DOSE 07/30/24 Medications to discontinue per physician ASPIRIN AND PLAVIX PER DR DICKEY PT WILL CALL Please no make-up, nail moldovan, hairspray, perfume, deodorant, or body powder the day of surgery.? No jewelry (including any body piercings) or valuables the day of surgery, leave them at home.? Please take a shower or bath the night before, or the morning of, surgery with an antibacterial soap.? Wear comfortable, loose fitting clothing.? Children are encouraged to wear pajamas. - Jewelry must be removed prior to entering the operating room.? Rings and piercings that are not removed may be cut off. - The hospital will not accept responsibility for valuables.? - Please leave all valuables, including medications, at home the day of surgery. If you are going home after surgery, a licensed emt driver must drive you home.? - NO public transportation without another adult if you receive anesthesia. - We recommend that an adult stay with you for 24 hours following discharge. - We also recommend that you do not drive, make important decision, drink alcoholic beverages, or take any drugs that were not prescribed by your health care provider for at least 24 hours after your discharge time. Follow any additional instructions given to you from your surgeon. Telephone instructions given to __PATIENT and asked if any additional questions and then verbalized understanding. Patient advised to call surgeon office or pre surgery nurse liaison [phone] if any additional questions.
[2024-07-25 12:52] VITALS: BMI 31.4
--- NOTE | 2024-08-02 14:49 | WPDANESEPPF ---
Anes - Initial Pre Proc Eval Procedure: Operation Date: 08/03/24 11:00 Proposed Procedures p Left Endoscopic Carpal Tunnel Release, Possible Open, Left Tunnel Cubital Revision, - Alissa Saleh MD s Left Small Dupuytren's Fasciectomy - Alissa Saleh MD Date/Time: 08/02/24 14:49 Surgeon: Alissa Saleh MD Pre Op Diagnosis: left carpal and cubital tunnel syndrome, Patient Data Age: 74 Gender: M Height: 1.71 m Weight: 92.55 kg Allergies Allergy/AdvReac Type Severity Reaction Status Date / Time No Known Allergies Allergy Verified 07/25/24 12:33 Home Medications ?Medication ?Instructions ?Recorded ?Confirmed ?Type hydrocodone 5 mg-acetaminophen 325 1 tablet PO BID PRN Back Pain 03/08/19 07/25/24 History mg tablet nitroglycerin 0.4 mg sublingual 0.4 mg sublingual Q5-15M PRN Chest 03/08/19 07/25/24 History tablet (Nitrostat) Pain aspirin 81 mg tablet,delayed 81 mg PO DAILY 01/03/21 07/25/24 History release (Adult Low Dose Aspirin) ferrous sulfate 325 mg (65 mg 325 mg PO DAILY 12/07/23 07/25/24 History iron) tablet omega-3 fatty acids 1,000 mg 4,000 mg PO DAILY 12/17/23 07/25/24 History capsule lancets 33 gauge (Micro Thin See Rx Instructions .Route 01/27/24 07/25/24 Rx Lancets) .COMPLEX #200 ea sildenafil 100 mg tablet See Rx Instructions .Route 02/18/24 07/25/24 Rx .COMPLEX #20 tabs blood sugar diagnostic (True #200 strips 03/15/24 05/10/24 Rx Metrix Glucose Test Strip) clopidogrel 75 mg tablet See Rx Instructions .Route 05/02/24 07/25/24 Rx .COMPLEX #90 tabs metoprolol succinate 50 mg See Rx Instructions .Route 05/02/24 07/25/24 Rx tablet,extended release 24 hr .COMPLEX #90 tabs methocarbamol 750 mg tablet See Rx Instructions .Route 05/09/24 07/25/24 Rx .COMPLEX #90 tabs gabapentin 100 mg capsule 100 mg PO DAILY 05/10/24 07/25/24 History gabapentin 300 mg capsule See Rx Instructions .Route .COMPLEX 05/10/24 07/25/24 History pantoprazole 40 mg tablet,delayed See Rx Instructions .Route 05/10/24 07/25/24 Rx release .COMPLEX #90 tabs potassium chloride 10 mEq 10 meq PO DAILY #90 caps 05/10/24 07/25/24 Rx capsule,extended release rosuvastatin 40 mg tablet See Rx Instructions .Route 05/18/24 07/25/24 Rx .COMPLEX #90 tabs metformin 1,000 mg tablet See Rx Instructions .Route 06/01/24 07/25/24 Rx .COMPLEX #180 tabs fluticasone propionate 50 1 spray intranasal BID #16 grams 06/23/24 07/25/24 Rx mcg/actuation nasal spray,suspension (Flonase Allergy Relief) valsartan 320 See Rx Instructions .Route 06/30/24 07/25/24 Rx mg-hydrochlorothiazide 12.5 mg .COMPLEX #90 tabs tablet lorazepam 0.5 mg tablet 0.5 mg PO BID PRN Anxiety #60 tabs 07/28/24 Rx glipizide 5 mg tablet See Rx Instructions .Route 07/29/24 Rx .COMPLEX #90 tabs Patient hx anesthesia problems: none Family hx anesthesia problems: none Results Review: All pre-operative results and documents have been reviewed as part of the pre-operative evaluation. [facility] Past Medical History Medical History (Updated 08/03/24 @ 07:04 by Alissa Saleh MD) Chronic pain ASHD (arteriosclerotic heart disease) Anxiety and depression Benign prostatic hyperplasia Chronic GERD DM w/o complication type II Essential (primary) hypertension Fatty liver Unspecified hemorrhoids Other and unspecified hyperlipidemia Inflammatory polyps of colon with unspecified complications Primary osteoarthritis involving multiple joints Surgical History Surgical History (Updated 08/02/24 @ 14:49 by Zain Phipps DO) H/O heart artery stent x7 H/O colonoscopy S/P cervical disc replacement H/O heart artery stent Family History Family History Father Family history of heart disease in male family member before age 55 Acute myocardial infarction Mother No problems noted. Other Acute myocardial infarction Social History Social History (Reviewed 06/13/24 @ 14:11 by Christopher Shay [facility] Social History: Caffeine-soda Smoking status: Never smoker Tobacco type: cigarettes Second hand tobacco smoke exposure: Yes Alcohol intake: current Drinks per week: 12 Alcohol use details: BEER Substance use: current Substance use type: marijuana Other substance usage details: SMOKES MARIJUANA AT INTERVALS Last use: 07/22/24 Do You Feel Safe in your Home?: Yes Lack of Transportation: No Lack of Food: Never True Current Housing: I Have Housing Concerned About Future Housing: No Difficulty Paying Gas/Electric Bills: No Difficulty Paying for Meds: No Currently Unemployed: No Education: Associate Degree Difficulty w/ Childcare or Family Care: No Living arrangements: with family Additional living arrangements comments: Occupation/Education: retired Gender identity (if verbalized by the patient): Male Sexual Orientation (if Verbalized by the Patient): Straight or Heterosexual Spiritual care concerns: No Agree to blood products: Yes Anes - Eval Final PreProcedure Day of Procedure 08/02/24 14:49 Patient weight: obese Heart: regular rate and rhythm Lungs: clear to auscultation Airway: Mallampati scale class II Neurological: alert and oriented Last oral intake: >/= 8 hours ASA classification: III Emergent: no Anesthetic plan: proceed Anesthesia type and monitoring: general GIVS and standard monitoring Results Review: All pre-operative results and documents have been reviewed as part of the pre-operative evaluation. Informed Consent: The patient's anesthetic plan and its attendant risks and benefits were discussed with the patient/family/POA. Questions were solicited and answers provided to the satisfaction of the patient/family/POA.
[2024-08-03] VITALS (7 sets, daily range): BP systolic 115–137; BP diastolic 56–73; PULSE 62–69; RESP 14–21; TEMP 36.6; O2SAT 96–99
--- OUTSIDE RECORDS SUMMARY | 2024-08-03 00:26 | XMS_ITS | Clinical Summary ---
Author Organization [facility] [address] Address [address] [place] [address] Care Team Providers Care Raw Finish Mill Operator Name Role Phone Ramo Landaverde MD Primary Care Provider [phone] [phone] Allergies No known active allergies Medications LORazepam [...] artery stent placement 05/14 Coronary arteriosclerosis in [place] artery 02/27 Overview (07/18/2016): Coronary arteriosclerosis in [place] artery Encounters Date Type Department Care Team Description 06/02/2024 3:00 PM BOSTON CUTTER Office Visit [facility] [address] [place] [address] Milton Carrasco II, MD Dysfunction [...] on file Legal Sex Male 12:44 AM BOSTON CUTTER Gender Identity Not on file Sexual Orientation Not on file Obstetrics History Last Filed Vital Signs Vital Sign Reading Time Taken Comments Blood Pressure 116/62 03/01/2024 7:59 AM BOSTON CUTTER Pulse 58 03/01/2024 7:59 AM BOSTON CUTTER Temperature 37 C (98.6 F) 02/07/2019 9:14 AM CDT Respiratory Rate 18 06/02/2024 2:50 PM BOSTON CUTTER Oxygen Saturation 95% 03/01/2024 7:59 AM BOSTON CUTTER Inhaled Oxygen Concentration - - Weight 92.5 kg (204 lb) 06/02/2024 2:50 PM BOSTON CUTTER Height 170.2 cm (5' 7 ) 06/02/2024 2:50 PM BOSTON CUTTER Body Mass Index 31.95 06/02/2024 2:50 PM BOSTON CUTTER Plan of Treatment Health Maintenance Due Date [...] 10/13/2032 10/13/2022 Medical Devices Implanted Type Area Clerical Support Specialist Device Identifier Shelf Expiration Date Model / Serial / Lot [employer] [id number] Synergy 2.75mm 28mm 144cm Radiopaque 1 Access Port Inflation - [id number] - [id number] Implanted:Qty: 1 on 02/07/2019 by Fritz Gonzalez MD PhD at [facility] Stent Left: Coronary [employer]ah 07/13/2020 [id number] / [id number] / [id number] [employer] [id number] Synergy 2.5mm 12mm 144cm Radiopaque 1 Access Port Inflation Lumen - [id number] - [id number] Implanted:Qty: 1 on 02/07/2019 by Fritz Gonzalez MD PhD at [facility] Stent Left: Coronary [employer]yah 10/10/2020 [id number] / [id number] / [id number] [employer] [id number] Synergy 3.5mm 20mm 144cm Radiopaque 1 Access Port Inflation Lumen - [id number] - [id number] Implanted:Qty: 1 on 02/07/2019 by Fritz Gonzalez MD PhD at [facility] Stent Left: Coronary [employer]yah 11/16/2020 [id number] / [id number] / [id number] [employer] [id number] Synergy 2.25mm 38mm 144cm Radiopaque 1 Access Port Inflation - [id number] - [id number] Implanted:Qty: 1 on 02/07/2019 by Fritz Gonzalez MD PhD at [facility] Stent Left: Coronary [employer] 10/12/2020 [id number] / [id number] / [id number] [employer] [id number] Synergy 3mm 38mm 144cm Radiopaque 1 Access Port Inflation Lumen - [id number] - [id number] Implanted:Qty: 1 on 02/07/2019 by Fritz Gonzalez MD PhD at [facility] Stent Left: Coronary [employer]yah 10/05/2020 [id number] / [id number] / [id number] [employer] [id number] Synergy 3mm 16mm 144cm Radiopaque 1 Access Port Inflation Lumen - [id number] - [id number] Implanted:Qty: 1 on 02/07/2019 by Fritz Gonzalez MD PhD at [facility] Stent Left: Coronary [employer] 09/27/2020 [id number] / [id number] / [id number] [employer] [id number] Synergy 3mm 12mm 144cm Radiopaque 1 Access Port Inflation Lumen - [id number] - [id number] Implanted:Qty: 1 on 02/07/2019 by Fritz Gonzalez MD PhD at [facility] Stent Right: Coronary [employer]yah 08/17/2020 [id number] / [id number] / [id number] [employer] [id number] Angio-Seal Evolution 8fr .038in Guidewire Bypass Tube Suture - [id number] Implanted:Qty: 1 on 02/07/2019 by Fritz Gonzalez MD PhD at [facility] Left: Coronary [employer] 10/11/2019 [id number] / / [id number] [employer] [id number] Angio-Seal Evolution 6fr .035in Guidewire Bypass Tube Suture - [id number] Implanted:Qty: 1 on 02/07/2019 by Fritz Gonzalez MD PhD at [facility] Left: Coronary [employer] 09/11/2019 [id number] / / [id number] Insurance [employer] MEDICARE RAILROAD MEDICARE RAILROAD [employer] MEDICARE RAILROAD Advance Directives For more information, please contact: [phone] * Full Code (Latest Code Status on File) Date Activated Date Inactivated Comments 02/07/2019 6:12 PM 02/07/2019 11:22 PM Care Teams Raw Finish Mill Operator Relationship Specialty Start Date End Date Ramo Landaverde MD PCP - General Family Practice 02/03/23
--- OUTSIDE RECORDS SUMMARY | 2024-08-03 00:26 | XMS_ITS | Clinical Summary ---
Author Organization [facility] Address [address] [place] [address] Care Team Providers Care Stable Hand Name Role Phone Ramo Landaverde MD Primary Care Provider Allergies No known active allergies Medications clopidogrel [...] Problem Noted Date Diagnosed Date Severe sepsis ([facility]) 11/26/2023 History of coronary artery stent placement 05/14 Coronary arteriosclerosis in [place] artery 02/27 Overview (11/26/2023): Coronary arteriosclerosis in [place] artery Immunizations Immunization Administration Dates Next Due Tdap (Boostrix) 10/13/2022 Social History Tobacco Use Types Packs/Day Years Used Date Smoking Tobacco: Never Smokeless Tobacco: Never Tobacco Cessation:Counseling Given: Not Answered Alcohol Use Standard Drinks/Week Comments Yes 6.7 (1 standard drink = 0.6 oz p ure alcohol) [facility] Utilities Answer Date Recorded In the past 12 months has [facility]robe, oil, or water Social Tables threatened to shut off services in your [...] any time in the past 12 m [facility], were you homeless or living in a custodial (including now)? 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
--- OUTSIDE RECORDS SUMMARY | 2024-08-03 00:26 | XMS_ITS | Referral Summary ---
Author Organization [facility] [address] Address [address] [place] [address] Care Team Providers Care Cold Roll Inspector Name Role Phone Ramo Landaverde MD Primary Care Provider [phone] [phone] Encounters Date Type Department Care Team Description 06/02/2024 3:00 PM GETTER WELDER Office Visit [facility] Otolaryngology [address] [place] [address] Milton Carrasco II, MD Dysfunction of [...] artery stent placement 05/14 Coronary arteriosclerosis in [place] artery 02/27 Overview (07/18/2016): Coronary arteriosclerosis in [place] artery Social History Tobacco Use Types Packs/Day Years Used Date Smoking Tobacco: Never Smokeless Tobacco: Never Tobacco Cessation:Counseling Given: Not Answered Alcohol Use Standard Drinks/Week Comments Yes 24 (1 standard drink = 0.6 oz pu re alcohol) Sex and Gender Information Value Date Recorded Sex Assigned at Not on file Legal Sex Male 12:44 AM GETTER WELDER Gender Identity Not on file Sexual Orientation Not on file Last Filed Vital Signs Vital Sign Reading Time Taken Comments Blood Pressure 116/62 03/01/2024 7:59 AM GETTER WELDER Pulse 58 03/01/2024 7:59 AM GETTER WELDER Temperature 37 C (98.6 F) 02/07/2019 9:14 AM CDT Respiratory Rate 18 06/02/2024 2:50 PM GETTER WELDER Oxygen Saturation 95% 03/01/2024 7:59 AM GETTER WELDER Inhaled Oxygen Concentration - - Weight 92.5 kg (204 lb) 06/02/2024 2:50 PM GETTER WELDER Height 170.2 cm (5' 7 ) 06/02/2024 2:50 PM GETTER WELDER Body Mass Index 31.95 06/02/2024 2:50 PM GETTER WELDER Plan of Treatment Not on file Medical Devices Implanted Type Area Smart Grid Engineer Device Identifier Shelf Expiration Date Model / Serial / Lot [employer] [id number] Synergy 2.75mm 28mm 144cm Radiopaque 1 Access Port Inflation - [id number] - [id number] Implanted:Qty: 1 on 02/07/2019 by Fritz Gonzalez MD PhD at [facility] Stent Left: Coronary [employer] 07/13/2020 [id number] / [id number] / [id number] [employer] [id number] Synergy 2.5mm 12mm 144cm Radiopaque 1 Access Port Inflation Lumen - [id number] - [id number] Implanted:Qty: 1 on 02/07/2019 by Fritz Gonzalez MD PhD at [facility] Stent Left: Coronary [employer] 10/10/2020 [id number] / [id number] / [id number] [employer] [id number] Synergy 3.5mm 20mm 144cm Radiopaque 1 Access Port Inflation Lumen - [id number] - [id number] Implanted:Qty: 1 on 02/07/2019 by Fritz Gonzalez MD PhD at [facility] Stent Left: Coronary [employer] 11/16/2020 [id number] / [id number] / [id number] [employer] [id number] Synergy 2.25mm 38mm 144cm Radiopaque 1 Access Port Inflation - [id number] - [id number] Implanted:Qty: 1 on 02/07/2019 by Fritz Gonzalez MD PhD at [facility] Stent Left: Coronary [employer] 10/12/2020 [id number] / [id number] / [id number] [employer] [id number] Synergy 3mm 38mm 144cm Radiopaque 1 Access Port Inflation Lumen - [id number] - [id number] Implanted:Qty: 1 on 02/07/2019 by Fritz Gonzalez MD PhD at [facility] Stent Left: Coronary [employer] 10/05/2020 [id number] / [id number] / [id number] [employer] [id number] Synergy 3mm 16mm 144cm Radiopaque 1 Access Port Inflation Lumen - [id number] - [id number] Implanted:Qty: 1 on 02/07/2019 by Fritz Gonzalez MD PhD at [facility] Stent Left: Coronary [employer] 09/27/2020 [id number] / [id number] / [id number] [employer] [id number] Synergy 3mm 12mm 144cm Radiopaque 1 Access Port Inflation Lumen - [id number] - [id number] Implanted:Qty: 1 on 02/07/2019 by Fritz Gonzalez MD PhD at [facility] Stent Right: Coronary [employer] 08/17/2020 [id number] / [id number] / [id number] Daig [employer] [id number] Angio-Seal Evolution 8fr .038in Guidewire Bypass Tube Suture - [id number] Implanted:Qty: 1 on 02/07/2019 by Fritz Gonzalez MD PhD at [facility] Left: Coronary [employer] 10/11/2019 [id number] / / [id number] [employer] [id number] Angio-Seal Evolution 6fr .035in Guidewire Bypass Tube Suture - [id number] Implanted:Qty: 1 on 02/07/2019 by Fritz Gonzalez MD PhD at [facility] Left: Coronary [employer] 09/11/2019 [id number] / / [id number] Insurance [employer] MEDICARE RAILROAD MEDICARE RAILRO[place] [address] MEDICARE [place] [address] Advance Directives For more information, please contact: [phone] * Full Code (Latest Code Status on File) Date Activated Date Inactivated Comments 02/07/2019 6:12 PM 02/07/2019 11:22 PM Care Teams Cold Roll Inspector Relationship Specialty Start Date End Date Ramo Landaverde MD PCP - General Family Practice 02/03/23
--- OUTSIDE RECORDS SUMMARY | 2024-08-03 00:26 | XMS_ITS | Clinical Summary ---
Author Organization [facility] Address [address] [place] [address] Care Team Providers Care Well Control Instructor Name Role Phone Ramo Landaverde MD Primary Care Provider [phone] [phone] Allergies No known active allergies Medications aspirin [...] Encounters Date Type Department Care Team Description 07/26/2024 External Device Data STL ABSTRACTION Provider, Abstract 07/25/2024 Orders Only [facility] and Hematology - [address] [place] [address] Dennis Brooks MD Chronic anemia 07/19/2024 External Device Data STL ABSTRACTION Provider, Abstract 07/11/2024 Orders Only [facility] - [address] [place] [address] Dennis Brooks MD Chronic anemia 06/29/2024 External Device Data STL ABSTRACTION Provider, Abstract 06/27/2024 Orders Only [facility] - [address] [place] [address] Dennis Brooks MD Chronic anemia 06/20/2024 External Device Data STL ABSTRACTION Provider, Abstract 06/14/2024 2:00 PM HEAD PORTER BAGGAGE Office Visit [facility]ology - [address] [place] [address] Dennis Brooks MD Chronic anemia (Primary Dx) 06/13/2024 Orders Only [facility] - [address] [place] [address] Dennis Brooks MD Chronic anemia 06/07/2024 External Device Data STL ABSTRACTION Provider, Abstract 05/30/2024 Orders Only [facility] - [address] [place] [address] Dennis Brooks MD Chronic anemia 05/16/2024 Orders Only [facility] - [address] [place] [address] Dennis Brooks MD Chronic anemia 05/10/2024 External Device Data STL ABSTRACTION Provider, Abstract from Last 3 Months Family History Medical [...] Comments Blood Pressure 144/77 06/14/2024 1:58 PM HEAD PORTER BAGGAGE Pulse 68 06/14/2024 1:57 PM HEAD PORTER BAGGAGE Temperature 35.7 C (96.3 F) 06/14/2024 1:57 PM HEAD PORTER BAGGAGE Respiratory Rate 15 06/14/2024 1:57 PM HEAD PORTER BAGGAGE Oxygen Saturation 97% 06/14/2024 1:57 PM HEAD PORTER BAGGAGE Inhaled Oxygen Concentration - - Weight 92 kg (202 lb 12.8 oz) 06/14/2024 1:57 PM HEAD PORTER BAGGAGE Height 170.2 cm (5' 7 ) 02/08/2024 1:37 PM CDT Body Mass Index 31.76 02/08/2024 1:37 PM CDT Plan of Treatment Upcoming Encounters Date Type Department Care Team (Late st Contact Info) Description 09/15/2024 2:45 PM CDT Office Visit [facility] Hematology - [address] [place] [address] Dennis Brooks MD [address] [facility] [address] [place] [address] Health Maintenance Due Date Last [...] (2 - Td or Tdap) 10/13/2032 Insurance [employer] MEDICARE RAILROAD Care Teams Well Control Instructor Relationship Specialty Start Date End Date Ramo Landaverde MD [address] [place] [address] PCP - General Family Practice 03/03/24
--- NOTE | 2024-08-03 06:59 | WPDHPUPDATE1 ---
History and Physical Update Update Date/Time: 08/03/24 06:59 Patient seen and examined in pre-operative holding area. No interval change in medical history or symptoms. Patient recalls previous discussion of benefits and alternatives to procedure. Continues to desire to proceed with left endoscopic possible open carpal tunnel release left cubital tunnel release revision and left small finger fasciectomy. Reviewed procedure, post-op expectations and risks including but not limited to bleeding, infection, injury to tendon/nerve/vessel, decreased hand function, stiffness, RSD, no change or worsening of symptoms, recurrence, incomplete release. I discussed the possible use of assistants and their participation in the case. Patient stated understanding and signed the consent form wishing to proceed.
--- NOTE | 2024-08-03 07:03 | PM.HPGS ---
History of Present Illness History of Present Illness Chief complaint: left carpal and cubital tunnel syndrome, Narrative: Patient seen and examined in pre-operative holding area. No interval change in medical history or symptoms. Patient recalls previous discussion of benefits and alternatives to procedure. Continues to desire to proceed with left endoscopic possible open carpal tunnel release left cubital tunnel release revision and left small finger fasciectomy. Reviewed procedure, post-op expectations and risks including but not limited to bleeding, infection, injury to tendon/nerve/vessel, decreased hand function, stiffness, RSD, no change or worsening of symptoms, recurrence, incomplete release. I discussed the possible use of assistants and their participation in the case. Patient stated understanding and signed the consent form wishing to proceed. Review of Systems Review of Systems: All systems reviewed & are unremarkable except as noted in HPI and below PMFSH Past Medical History Medical History (Updated 08/03/24 @ 07:04 by Alissa Saleh MD) Chronic pain ASHD (arteriosclerotic heart disease) Anxiety and depression Benign prostatic hyperplasia Chronic GERD DM w/o complication type II Essential (primary) hypertension Fatty liver Unspecified hemorrhoids Other and unspecified hyperlipidemia Inflammatory polyps of colon with unspecified complications Primary osteoarthritis involving multiple joints Surgical History Surgical History (Updated 08/02/24 @ 14:49 by Zain Phipps DO) H/O heart artery stent x7 H/O colonoscopy S/P cervical disc replacement H/O heart artery stent Family History Family History Father Family history of heart disease in male family member before age 55 Acute myocardial infarction Mother No problems noted. Other Acute myocardial infarction Social History Social History Social History: Caffeine-soda Smoking status: Never smoker Tobacco type: cigarettes Second hand tobacco smoke exposure: Yes Alcohol intake: current Drinks per week: 12 Alcohol use details: BEER Substance use: current Substance use type: marijuana Other substance usage details: SMOKES MARIJUANA AT INTERVALS Last use: 07/22/24 Do You Feel Safe in your Home?: Yes Lack of Transportation: No Lack of Food: Never True Current Housing: I Have Housing Concerned About Future Housing: No Difficulty Paying Gas/Electric Bills: No Difficulty Paying for Meds: No Currently Unemployed: No Education: Associate Degree Difficulty w/ Childcare or Family Care: No Living arrangements: with family Additional living arrangements comments: Occupation/Education: retired Gender identity (if verbalized by the patient): Male Sexual Orientation (if Verbalized by the Patient): Straight or Heterosexual Spiritual care concerns: No Agree to blood products: Yes Meds Home Medications and Allergies Home Medications ?Medication ?Instructions ?Recorded ?Confirmed ?Type hydrocodone 5 mg-acetaminophen 325 1 tablet PO BID PRN Back Pain 03/08/19 08/03/24 History mg tablet nitroglycerin 0.4 mg sublingual 0.4 mg sublingual Q5-15M PRN Chest 03/08/19 07/25/24 History tablet (Nitrostat) Pain aspirin 81 mg tablet,delayed 81 mg PO DAILY 01/03/21 08/03/24 History release (Adult Low Dose Aspirin) ferrous sulfate 325 mg (65 mg 325 mg PO DAILY 12/07/23 07/25/24 History iron) tablet omega-3 fatty acids 1,000 mg 4,000 mg PO DAILY 12/17/23 07/25/24 History capsule lancets 33 gauge (Micro Thin See Rx Instructions .Route 01/27/24 07/25/24 Rx Lancets) .COMPLEX #200 ea sildenafil 100 mg tablet See Rx Instructions .Route 02/18/24 07/25/24 Rx .COMPLEX #20 tabs blood sugar diagnostic (True #200 strips 03/15/24 05/10/24 Rx Metrix Glucose Test Strip) clopidogrel 75 mg tablet See Rx Instructions .Route 05/02/24 08/03/24 Rx .COMPLEX #90 tabs methocarbamol 750 mg tablet See Rx Instructions .Route 05/09/24 07/25/24 Rx .COMPLEX #90 tabs gabapentin 100 mg capsule 100 mg PO DAILY 05/10/24 08/03/24 History gabapentin 300 mg capsule See Rx Instructions .Route .COMPLEX 05/10/24 07/25/24 History pantoprazole 40 mg tablet,delayed See Rx Instructions .Route 05/10/24 07/25/24 Rx release .COMPLEX #90 tabs potassium chloride 10 mEq 10 meq PO DAILY #90 caps 05/10/24 07/25/24 Rx capsule,extended release rosuvastatin 40 mg tablet See Rx Instructions .Route 05/18/24 07/25/24 Rx .COMPLEX #90 tabs metformin 1,000 mg tablet See Rx Instructions .Route 06/01/24 08/03/24 Rx .COMPLEX #180 tabs fluticasone propionate 50 1 spray intranasal BID #16 grams 06/23/24 07/25/24 Rx mcg/actuation nasal spray,suspension (Flonase Allergy Relief) valsartan 320 See Rx Instructions .Route 06/30/24 07/25/24 Rx mg-hydrochlorothiazide 12.5 mg .COMPLEX #90 tabs tablet lorazepam 0.5 mg tablet 0.5 mg PO BID PRN Anxiety #60 tabs 07/28/24 08/03/24 Rx glipizide 5 mg tablet See Rx Instructions .Route 07/29/24 Rx .COMPLEX #90 tabs metoprolol succinate 50 mg See Rx Instructions .Route 08/03/24 Rx tablet,extended release 24 hr .COMPLEX #90 tabs Allergies Allergy/AdvReac Type Severity Reaction Status Date / Time No Known Allergies Allergy Verified 08/03/24 10:16 Exam Narrative: unchnaged Assessment and Plan Assessment and plan (1) Ulnar neuropathy: Qualifiers: Laterality: bilateral Qualified Code(s): G56.23 - Lesion of ulnar nerve, bilateral upper limbs Code(s): G56.20 - Lesion of ulnar nerve, unspecified upper limb Status: Acute Assessment and Plan: cont as above (2) Carpal tunnel syndrome of right wrist: Code(s): G56.01 - Carpal tunnel syndrome, right upper limb Status: Acute (3) Dupuytren contracture: Code(s): M72.0 - Palmar fascial fibromatosis [Dupuytren] Status: Acute
--- NOTE | 2024-08-03 07:04 | W.PM.PROC2 ---
Procedure Note - Detailed Date of Procedure 08/03/24 Pre-op Diagnosis left carpal and cubital tunnel syndrome, and left small finger dupuytren contracture Post-op Diagnosis Same Procedure Performed left ectr, left CuTR revision and left small finger fasciectomy Surgeon Alissa Saleh MD Chief Customer Officer ed guzmán pa-c Anesthesia MAC Description of Procedure INFORMED CONSENT: The patient was seen and examined and marked in the pre-op area.? The patient signed the consent form. PROCEDURE IN DETAIL:The patient taken back to OR on the stretcher in supine position. Time out performed with anesthesia, surgeon and staff agreeing on patient's name site and surgery to be performed SCDs were placed on the lower extremities and inflated. A tourniquet was placed on {left} upper extremity and antibiotics given IV After anesthesia administered sedation I injected {10}cc 1%lido with epi and 0.5% marcaine plain at the operative sites The?{left upper extremity}?was prepped and draped in sterile fashion the??{left upper extremity} was? exsanguinated with Esmarch bandage and tourniquet inflated to 250mmHg I made a transverse incision in the {left} volar distal wrist crease through skin and dermis with 15 blade scalpel.? Littler scissors spread down to antebrachial fascia. A small incision was made in antebrachial fascia allowing access to Carpal tunnel. I proceeded with sequential dilation staying in line with the ring finger and hugging the hook of the hamate.? I then used the synovial elevator to free any adhesions from the underside of the transverse carpal ligament. Next I was able to insert the Microaire endoscopic carpal tunnel device with direct visualization of the transverse fibers on the monitor and proceeded with complete segmental retrograde release of the ligament in its entirety though its noted it took several pases with synoviail elevator and camera due to the large amount of synovitis within the carpal tunnel.? I irrigated with normal saline and closed with 4-0 monocryl for dermis and subcuticular closure. Next I made a longitudinal incision over the dupuytren cord from palm to pipjoint going obliquely at flexion crases with 15 blade scalpel through dermis. I elevated skin flaps proximally exposing the dupuytren cord near its origin. I circumferentially dissected around the cord and then transeceted it. I proceeded with anterograde dissection of the cord to the pipjoint until I was able to achieve full extension of mpj and pipjoint. The neurovascular bundles were identified and protected throughout the procedure. I irrigated with normal saline and closed with 4-0 chromic. I next proceeded with making a longitudinal incision between two heads for flexor carpi ulnaris at end of {left} cubital tunnel at patients' previous surgical scar with 15 blade scalpel.? Littler scissors were used to spread down to FCU fascia.? An incision was made in FCU fascia and ulnar nerve identified exiting cubital tunnel.? I proceeded with complete retrograde release of the cubital tunnel including 7cm proximal for the intermuscular septum.? The nerve was quite atrophic and constricted from scar tissue requeriing neurolysis. After neurolysis the nerve appeared more round and had visible vaso nervorum.? There was no subluxation on full elbow range of motion. ? I irrigated with normal saline and closure with 3-0 vicryl and 4-0 monocryl. The incisions were covered with Dermabond for wrist and elbow and xeroform for palm then 4x4s, jh, and a posterior elbow and ulnar gutter splint with small finger straight for patient safety, security and comfort and secured with taty bandages after the tourniquet was let down noting the hand was warm and well perfused.? Patient awaken from anesthesia and transferred to recovery in stable condition Complications - none EBL- 1cc Disposition - home in stable conditions ed guzmán pa-c was essential for positioning, retraction, closure and dressing placement [facility] Billing Surgery - Charge Forward: Surgery Billing ([id number] same for ed adding modifier )
[2024-08-03] MEDS: LIDO 1%/EPINEPHRINE 1:100,000 20 ML VIAL 10 ML INFILTRATE (08:44)
[2024-08-03 09:35] LABS: Glucose Point of Care 163 mg/dl (65-105)
[2024-08-03] MEDS: LACTATED RINGERS 1,000 ML 30 ML IV CONT (10:00)
[2024-08-03] MEDS: ceFAZolin 2 GM/D5W 50 ML 2 GM/50 ML BAG IVPB (11:04)
[2024-08-03 12:07] LABS: Glucose Point of Care 170 mg/dl (65-105)
== END 2024-08-03 13:30 | disposition home or self-care (01) ==
PROVIDERS: PCP Family Medicine; Visit Provider Plastic Surgery
PROC: 01N54ZZ Release Median Nerve, Percutaneous Endoscopic Approach (ICD-10-PCS; CPT 29848; principal; 2024-08-03 11:00)
PROC: (CPT 26045; 2024-08-03 11:00)
DX: G56.22 Lesion of ulnar nerve, left upper limb (principal); G56.02 Carpal tunnel syndrome, left upper limb; M72.0 Palmar fascial fibromatosis [Dupuytren]; I10 Essential (primary) hypertension; E78.49 Other hyperlipidemia; N40.0 Benign prostatic hyperplasia without lower urinary tract symptoms; E11.9 Type 2 diabetes mellitus without complications; I25.10 Atherosclerotic heart disease of native coronary artery without angina pectoris; K21.9 Gastro-esophageal reflux disease without esophagitis; G89.29 Other chronic pain; F41.8 Other specified anxiety disorders; M15.0 Primary generalized (osteo)arthritis; F12.90 Cannabis use, unspecified, uncomplicated; E66.9 Obesity, unspecified; Z68.30 Body mass index [BMI] 30.0-30.9, adult; Z79.891 Long term (current) use of opiate analgesic; Z79.82 Long term (current) use of aspirin; Z79.02 Long term (current) use of antithrombotics/antiplatelets; Z79.84 Long term (current) use of oral hypoglycemic drugs; Z98.890 Other specified postprocedural states; Z95.5 Presence of coronary angioplasty implant and graft; Z98.1 Arthrodesis status; Z86.0100 Personal history of colon polyps, unspecified; Z82.49 Family history of ischemic heart disease and other diseases of the circulatory system
CPT/HCPCS: 26123; 64718; 29848; 82948; 88304; J0690; J1100; J2004; J2405; J2704; J3010; J7120

== ENCOUNTER 2024-11-10 11:22 | Outpatient (CLI) | payer MEDICARE, SELFPAY ==
--- OUTSIDE RECORDS SUMMARY | 2024-11-10 11:26 | XMS_ITS | Clinical Summary ---
Author Organization [facility] [address] Address [address] [place] [address] Care Team Providers Care Human Resources Intern Name Role Phone Ramo Landaverde MD Primary Care Provider [phone] Allergies No known active allergies Medications LORazepam [...] route 2 times every 0 2 Active valsartan-hydr ochlorothiazid e (DIOVAN HCT) 320-12.5 mg per tablet take 1 tablet by oral route every day 0 2 Active HYDROcodone-ac etaminophen (NORCO) 5-325 mg per tablet take 1 [...] XL (GLUCOTROL XL) 5 mg 24 hr tabletIndicati ons:type 2 diabetes mellitus Take 1 tablet (5 mg total) by mouth daily Active aspirin 81 mg enteric coated tablet Take 1 tablet (81 mg total) by mouth daily Active multivitamin capsule Take 1 capsule by mouth daily Active methocarbamoL (ROBAXIN) 750 mg tablet Take 1 tablet (750 mg total) by mouth 3 (three) times a day Active sildenafiL (VIAGRA) 100 mg tablet Take 1 tablet (100 mg total) by mouth daily as needed Active potassium chloride ER 10 mEq CR capsule Take 1 tablet/caps ule (10 mEq total) by mouth daily Active gabapentin (NEURONTIN) 100 mg capsule Take 1 capsule (100 mg total) by mouth daily as needed 4 Active gabapentin (NEURONTIN) 300 mg capsule Take 1 capsule (300 mg total) by mouth nightly 4 Active ferrous sulfate 134 mg (27 mg of elemental iron) tabletIndicati ons:Iron Deficiency Anemia Take by mouth Active cyanocobalamin /cobamamide (B12 SL) Place under the tongue Active nitroglycerin (NITROSTAT) 0.4 mg SL tablet ONE TABLET UNDER TONGUE NEEDED FOR CHEST PAIN EVERY 5 MINUTES 25 tablet 3 5 Active nitroglycerin (NITROSTAT) 0.[address] 1 tablet (0.4 mg total) under the tongue every 5 (five) minutes as needed for chest pain 25 tablet 11 3 10/14/19 25 Discontinued Active Problems Problem Noted Date Diagnosed Date Dysfunction of right eustachian tube 06/02/2024 Right ear pain 06/02/2024 History of coronary artery stent placement 05/14 Coronary arteriosclerosis in [place] artery 02/27 Overview (07/18/2016): Coronary arteriosclerosis in [place] artery Encounters Date Type Department Care Team Description 08/30/2024 2:45 PM CDT Office Visit [facility] Cardiology [address] [place] [address] Charly Moscoso MD History of coronary artery stent placement (Primary Dx); Coronary arteriosclerosis in [place] artery from Last 3 Months Surgical History Surgery Date Site/Laterality Comments TOE SURGERY Right joint replacement-great toe TOE SURGERY Right great toe -neuroma removed PLANTAR FASCIA SURGERY Bilateral HERNIA REPAIR OTHER SURGICAL HISTORY 04/13/2024 - 04/12/2025 Nerve damage repair at [facility] Medical History Medical History Date Comments Coronary artery disease Myocardial infarction (HCC) 2009 Diabetes mellitus (HCC) Hyperlipidemia Hypertension Ear problems UTI (urinary tract infection) Family History Medical History Relation Name Comments [...] on file Legal Sex 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 Gender Identity Not on file Sexual Orientation Not on file Obstetrics History Last Filed Vital Signs Vital Sign Reading Time Taken Comments Blood Pressure 124/58 08/30/2024 2:35 PM CDT Pulse 59 08/30/2024 2:35 PM CDT Temperature 37 C (98.6 F) 02/07/2019 9:14 AM CDT Respiratory Rate 18 06/02/2024 2:50 PM CUSTOMER TECHNICAL SERVICES MANAGER Oxygen Saturation 95% 08/30/2024 2:35 PM CDT Inhaled Oxygen Concentration - - Weight 89.7 kg (197 lb 11.2 oz) 08/30/2024 2:35 PM CDT Height 171.5 cm (5' 7.5) 08/30/2024 2:35 PM CDT Body Mass Index 30.51 08/30/2024 2:35 PM CDT Plan of Treatment Health Maintenance Due Date Last Done Comments Colon Cancer Screening-Colonoscopy 1951 Depression Screening 1951 Fall Risk Assessment 1950 Hepatitis C Screening 1950 Hepatitis B Screening 1969 Zoster Vaccine (1 of 2) 2001 Well Visit 65+ 01/24/2016 Pneumococcal vaccine 65+ (2 of 2 - PPSV23) 06/30/2016 05/05/2016 Influenza Vaccine (#1) 2024 8, 02/16/2017, 05/05/2016, Additional history exists DTaP/Tdap/Td Vaccine (2 - Td or Tdap) 10/13/2032 10/13/2022 Medical Devices Implanted Type Area Coating Machine Feeder Device Identifier Shelf Expiration Date Model / Serial / Lot [employer]ah [id number] Synergy 2.75mm 28mm 144cm Radiopaque 1 Access Port Inflation - [id number] - [id number] Implanted:Qty: 1 on 02/07/2019 by Fritz Gonzalez MD PhD at [facility] Stent Left: Coronary [employer] 07/13/2020 [id number] / [id number] / [id number] [employer] [id number] Synergy 2.5mm 12mm 144cm Radiopaque 1 Access Port Inflation Lumen - [id number] - [id number] Implanted:Qty: 1 on 02/07/2019 by Fritz Gonzalez MD PhD at [facility] Stent Left: Coronary [employer] 10/10/2020 [id number] / [id number] / [id number] [employer] [id number] Synergy 3.5mm 20mm 144cm Radiopaque 1 Access Port Inflation Lumen - [id number] - [id number] Implanted:Qty: 1 on 02/07/2019 by Fritz Gonzalez MD PhD at [facility] Stent Left: Coronary [employer] 11/16/2020 [id number] / [id number] / [id number] [employer] [id number] Synergy 2.25mm 38mm 144cm Radiopaque 1 Access Port Inflation - [id number] - [id number] Implanted:Qty: 1 on 02/07/2019 by Fritz Gonzalez MD PhD at [facility] Stent Left: Coronary [employer] 10/12/2020 [id number] / [id number] / [id number] [employer] [id number] Synergy 3mm 38mm 144cm Radiopaque 1 Access Port Inflation Lumen - [id number] - [id number] Implanted:Qty: 1 on 02/07/2019 by Fritz Gonzalez MD PhD at [facility] Stent Left: Coronary [employer] 10/05/2020 [id number] / [id number] / [id number] [employer] [id number] Synergy 3mm 16mm 144cm Radiopaque 1 Access Port Inflation Lumen - [id number] - [id number] Implanted:Qty: 1 on 02/07/2019 by Fritz Gonzalez MD PhD at [facility] Stent Left: Coronary [employer] 09/27/2020 [id number] / [id number] / [id number] [employer] [id number] Synergy 3mm 12mm 144cm Radiopaque 1 Access Port Inflation Lumen - [id number] - [id number] Implanted:Qty: 1 on 02/07/2019 by Fritz Gonzalez MD PhD at [facility] Stent Right: Coronary [employer]yah 08/17/2020 [id number] / [id number] / [id number] Daig Liyah[employer] [id number] Angio-Seal Evolution 8fr .038in Guidewire Bypass Tube Suture - [id number] Implanted:Qty: 1 on 02/07/2019 by Fritz Gonzalez MD PhD at [facility] Left: Coronary [employer] 10/11/2019 [id number] / / [id number] [employer] [id number] Angio-Seal Evolution 6fr .035in Guidewire Bypass Tube Suture - [id number] Implanted:Qty: 1 on 02/07/2019 by Fritz Gonzalez MD PhD at [facility] Left: Coronary [employer] 09/11/2019 [id number] / / [id number] Procedures Procedure Name Priority Date/Time Associated Diagnosis Comments POCT LIPID PANEL Routine 08/30/2024 3:07 PM CDT Coronary arteriosclerosis in [place] artery from Last 3 Months Results * (ABNORMAL) POCT lipid panel (08/30/2024 3:07 PM CDT) Cholesterol, POC 115 <200 MG/DL HDL, POC 46 >=40 mg/dL Triglycerides, POC 217(A) <=149 mg/dL LDL Cholesterol POC 25 <=129 mg/dL Chol/HDL Ratio, POC 0.5 NONE Non-HDL Cholesterol, POC 68 NONE mg/dL Cholesterol Total, POC 115 30 - 199 mg/dL Capillary blood 08/30/2024 3 :07 PM CDT us Charly Moscoso MD POINT OF CARE TEST ORDER DEMETRICE Final Result from Last 3 Months Insurance [employer] MEDICARE [employer] MEDICARE [email or web address] MEDIC[employer] RAILRO[employer] Advance Directives For more information, please contact: [phone] * Full Code (Latest Code Status on File) Date Activated Date Inactivated Comments 02/07/2019 6:12 PM 02/07/2019 11:22 PM Care Teams Human Resources Intern Relationship Specialty Start Date End Date Ramo Landaverde MD PCP - General Family Practice 02/03/23
--- OUTSIDE RECORDS SUMMARY | 2024-11-10 11:26 | XMS_ITS | Referral Summary ---
Author Organization [facility] [address] Address [address] [place] [address] Care Team Providers Care Sand Conditioner Name Role Phone Ramo Landaverde MD Primary Care Provider [phone] Encounters Date Type Department Care Team Description 08/30/2024 2:45 PM CDT Office Visit [facility] Medical [facility] Cardiology [address] [place] [address] Charly Moscoso MD History of coronary artery stent placement (Primary Dx); Coronary arteriosclerosis in [place] artery from Last 3 Months Allergies No known [...] artery stent placement 05/14 Coronary arteriosclerosis in [place] artery 02/27 Overview (07/18/2016): Coronary arteriosclerosis in [place] artery Social History Tobacco Use Types Packs/Day Years Used Date Smoking Tobacco: Never Smokeless Tobacco: Never Tobacco Cessation:Counseling Given: Not Answered Alcohol Use Standard Drinks/Week Comments Yes 24 (1 standard drink = 0.6 oz pu re alcohol) Sex and Gender Information Value Date Recorded Sex Assigned at Not on file 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 Gender Identity Not on file Sexual Orientation Not on file Last Filed Vital Signs Vital Sign Reading Time Taken Comments Blood Pressure 124/58 08/30/2024 2:35 PM CDT Pulse 59 08/30/2024 2:35 PM CDT Temperature 37 C (98.6 F) 02/07/2019 9:14 AM CDT Respiratory Rate 18 06/02/2024 2:50 PM ECONOMIC ANALYST Oxygen Saturation 95% 08/30/2024 2:35 PM CDT Inhaled Oxygen Concentration - - Weight 89.7 kg (197 lb 11.2 oz) 08/30/2024 2:35 PM CDT Height 171.5 cm (5' 7.5) 08/30/2024 2:35 PM CDT Body Mass Index 30.51 08/30/2024 2:35 PM CDT Plan of Treatment Not on file Medical Devices Implanted Type Area Artificial Inseminator Device Identifier Shelf Expiration Date Model / Serial / Lot [employer] Liyah [id number] Synergy 2.75mm 28mm 144cm Radiopaque 1 Access Port Inflation - [id number] - [id number] Implanted:Qty: 1 on 02/07/2019 by Fritz Gonzalez MD PhD at [facility] Stent Left: Coronary [employer] 07/13/2020 [id number] / [id number] / [id number] [employer] [id number] Synergy 2.5mm 12mm 144cm Radiopaque 1 Access Port Inflation Lumen - [id number] - [id number] Implanted:Qty: 1 on 02/07/2019 by Fritz Gonzalez MD PhD at [facility] Stent Left: Coronary [employer] 10/10/2020 [id number] / [id number] / [id number] [employer] [id number] Synergy 3.5mm 20mm 144cm Radiopaque 1 Access Port Inflation Lumen - [id number] - [id number] Implanted:Qty: 1 on 02/07/2019 by Fritz Gonzalez MD PhD at [facility] Stent Left: Coronary [employer] 11/16/2020 [id number] / [id number] / [id number] [employer] [id number] Synergy 2.25mm 38mm 144cm Radiopaque 1 Access Port Inflation - [id number] - [id number] Implanted:Qty: 1 on 02/07/2019 by Fritz Gonzalez MD PhD at [facility] Stent Left: Coronary [employer] 10/12/2020 [id number] / [id number] / [id number] [employer] [id number] Synergy 3mm 38mm 144cm Radiopaque 1 Access Port Inflation Lumen - [id number] - [id number] Implanted:Qty: 1 on 02/07/2019 by Fritz Gonzalez MD PhD at [facility] Stent Left: Coronary [employer] 10/05/2020 [id number] / [id number] / [id number] [employer] [id number] Synergy 3mm 16mm 144cm Radiopaque 1 Access Port Inflation Lumen - [id number] - [id number] Implanted:Qty: 1 on 02/07/2019 by Fritz Gonzalez MD PhD at [facility] Stent Left: Coronary [employer] 09/27/2020 [id number] / [id number] / [id number] [employer] [id number] Synergy 3mm 12mm 144cm Radiopaque 1 Access Port Inflation Lumen - [id number] - [id number] Implanted:Qty: 1 on 02/07/2019 by Fritz Gonzalez MD PhD at [facility] Stent Right: Coronary [employer] 08/17/2020 [id number] / [id number] / [id number] Daig [employer] [id number] Angio-Seal Evolution 8fr .038in Guidewire Bypass Tube Suture - [id number] Implanted:Qty: 1 on 02/07/2019 by Fritz Gonzalez MD PhD at [facility] Left: Coronary [employer] 10/11/2019 [id number] / / [id number] [employer] [id number] Angio-Seal Evolution 6fr .035in Guidewire Bypass Tube Suture - [id number] Implanted:Qty: 1 on 02/07/2019 by Fritz Gonzalez MD PhD at [facility] Left: Coronary [employer] 09/11/2019 [id number] / / [id number] Procedures Procedure Name Priority Date/Time Associated Diagnosis Comments POCT LIPID PANEL Routine 08/30/2024 3:07 PM CDT Coronary arteriosclerosis in [place] artery from Last 3 Months Results * [...] Final Result from Last 3 Months Insurance [employer] MEDICARE [employer] MEDICARE RAILROAD [employer] MEDIC[employer] RAILRO[employer] Advance Directives For more information, please contact: [phone] * Full Code (Latest Code Status on File) Date Activated Date Inactivated Comments 02/07/2019 6:12 PM 02/07/2019 11:22 PM Care Teams Sand Conditioner Relationship Specialty Start Date End Date Ramo Landaverde MD PCP - General Family Practice 02/03/23
--- OUTSIDE RECORDS SUMMARY | 2024-11-10 11:26 | XMS_ITS | Clinical Summary ---
Author Organization [facility] Address [address] [place] [address] Care Team Providers Care Concrete Mixer Truck Driver Name Role Phone Ramo Landaverde MD Primary Care Provider [phone] [phone] Allergies No known active allergies Medications aspirin [...] mg by mouth every 12 hours. Active gabapentin (NEURONTIN) 100 mg capsule Take 100 mg by mouth daily. Active gabapentin (NEURONTIN) 300 mg capsule Take 300 mg by mouth daily at bedtime. Active Active Problems No known active problems Encounters Date Type Department Care Team Description 10/31/2024 Orders Only [facility] Oncology and Hematology - [place] [place] [id number] Dennis Brooks MD Chronic anemia 10/17/2024 Orders Only [facility] Oncology and Hematology - [place] [place] [address] Dennis Brooks MD Chronic anemia 10/03/2024 Orders Only [facility] Oncology and Hematology - [address] [place] [address] Dennis Brooks MD Chronic anemia 09/27/2024 External Device Data STL ABSTRACTION Provider, Abstract 09/19/2024 Orders Only [facility] Oncology and Hematology - [place] [place] [address] Dennis Brooks MD Chronic anemia 09/16/2024 Orders Only [facility] Oncology and Hematology - [place] [address] [place] [address] Dennis Brooks MD 09/15/2024 2:45 PM CDT Office Visit [facility] Oncology and Hematology - [place] [address] [place] [address] Dennis Brooks MD Chronic anemia (Primary Dx) 09/06/2024 External Device Data STL ABSTRACTION Provider, Abstract 09/05/2024 Orders Only [facility] Oncology and Hematology - [place] [place] [address] Dennis Brooks MD Chronic anemia 09/01/2024 External Device Data STL ABSTRACTION Provider, Abstract 08/31/2024 External Device Data STL ABSTRACTION Provider, Abstract 08/30/2024 External Device Data STL ABSTRACTION Provider, Abstract 08/22/2024 Orders Only [facility] Oncology and Hematology - [place] [address] [place] [address] Dennis Brooks MD Chronic anemia from Last 3 Months Family History Medical [...] Sign Reading Time Taken Comments Blood Pressure 121/61 09/15/2024 2:46 PM CDT Pulse 71 09/15/2024 2:46 PM CDT Temperature 36.4 C (97.6 F) 09/15/2024 2:46 PM CDT Respiratory Rate 15 09/15/2024 2:46 PM CDT Oxygen Saturation 94% 09/15/2024 2:46 PM CDT Inhaled Oxygen Concentration - - Weight 89.1 kg (196 lb 6.4 oz) 09/15/2024 2:46 P M CDT Height 170.2 cm (5' 7) 02/08/2024 1:37 PM CDT Body Mass Index 30.76 02/08/2024 1:37 PM CDT Plan of Treatment Upcoming Encounters Date Type Department Care Team (Late st Contact Info) Description 01/17/2025 2:30 PM CDT Office Visit [facility] Oncology and Hematology - [place] [address] [place] [address] Dennis Brooks MD [address] [facility] [address] [place] [address] Health Maintenance Due Date Last Done Comments FIT-DNA Q 3 years 01/24/1996 FIT/FOBT Q 1 year 01/24/1996 Flex Sig/CT Colonography Q 5 years 01/24/1996 PNEUMOCOCCAL VACCINE 50+ YEARS (1 of 1 - PCV) 01/24/20 ZOSTER VACCINE (1 of 2) 2001 INFLUENZA VACCINE (#1) 2024 RSV VACCINE (60+ or ) (1 - 1-dose 75+ series) 2026 COLORECTAL SCREENING 05/07/2028 05/07/2018 Colorectal Cancer Screening 05/07/2028 DTAP/TDAP/TD VACCINES (2 - Td or Tdap) 10/13/2032 Procedures Procedure Name Priority Date/Time Associated Diagnosis Comments VITAMIN B12 LEVEL Routine 09/12/2024 12:34 PM CDT IRON PANEL Routine 09/12/2024 12:30 PM CDT from Last 3 Months Results * VITAMIN B12 LEVEL (09/12/2024 12:34 PM CDT) Blood Dennis Brooks MD CHEMISTRY ORDERABLES Final Resu lt * IRON PANEL (09/12/2024 12:30 PM CDT) Blood us Dennis Brooks MD CHEMISTRY ORDERABLES Final Resu lt from Last 3 Months Insurance [employer] MEDICARE RAILROAD Care Teams Concrete Mixer Truck Driver Relationship Specialty Start Date End Date Ramo Landaverde MD [address] [place] [phone] PCP - General Family Practice 03/03/24
--- OUTSIDE RECORDS SUMMARY | 2024-11-10 11:26 | XMS_ITS | Clinical Summary ---
Author Organization [facility] Address [address] [place] [address] Care Team Providers Care Technical Delivery Manager Name Role Phone Ramo Landaverde MD Primary Care Provider [phone] Allergies No known active allergies Medications clopidogrel [...] Problem Noted Date Diagnosed Date Severe sepsis ([facility]/HCC [facility]) 11/26/2023 History of coronary artery stent placement 05/14 Coronary arteriosclerosis in [place] artery 02/27 Overview (11/26/2023): Coronary arteriosclerosis in [place] artery Immunizations Immunization Administration Dates Next Due Tdap (Boostrix) 10/13/2022 Social History Tobacco Use Types Packs/Day Years Used Date Smoking Tobacco: Never Smokeless Tobacco: Never Tobacco Cessation:Counseling Given: Not Answered Alcohol Use Standard Drinks/Week Comments Yes 6.7 (1 standard drink = 0.6 oz p ure alcohol) [facility] Utilities Answer Date Recorded In the past 12 months has [facility], oil, or water [employer] threatened to shut off services in your [...] any time in the past 12 [facility], were you homeless or living in a penitentiary (including now)? 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
[2024-11-10 12:08] LABS: Alanine Aminotransferase 32 U/L (6-50); Albumin Level 4.4 g/dL (3.5-5.1); Alkaline Phosphatase 99 U/L (38-126); Anion Gap 7 mmol/L (4-12); Aspartate Amino Transferase 48 U/L (17-59); Bilirubin,Total 0.5 mg/dL (0.2-1.3); Blood Urea Nitrogen 13 mg/dL (9-20); Calcium 9.2 mg/dL (8.4-10.2); Carbon Dioxide 31 mmol/L (22-30); Chloride 94 mmol/L (98-107); Estimated Glomerular Filt Rate > 60; Glucose 159 mg/dL (65-110); Potassium 3.3 mmol/L (3.4-5.0); Sodium 132 mmol/L (137-145); Total Protein 7.3 g/dL (6.3-8.2)
[2024-11-10 12:42] LABS: Hemoglobin A1C 6.6 % (<5.7)
== END 2024-11-10 11:23 | disposition home or self-care (01) ==
PROVIDERS: PCP Nurse Practitioner Family; Visit Provider Nurse Practitioner Family
DX: N40.0 Benign prostatic hyperplasia without lower urinary tract symptoms (principal); E11.9 Type 2 diabetes mellitus without complications; I11.9 Hypertensive heart disease without heart failure; N52.9 Male erectile dysfunction, unspecified; E78.5 Hyperlipidemia, unspecified; K21.9 Gastro-esophageal reflux disease without esophagitis; I25.10 Atherosclerotic heart disease of native coronary artery without angina pectoris
CPT/HCPCS: 36415; 80053; 83036